=== PATIENT | female | born 1960 | race Caucasian/White ===

== ENCOUNTER 2021-08-26 08:00 | Inpatient (IN) | payer BC ==
[~2021-08-26 08:00] MED LIST: Lactated Ringers 1,000 ML IV SCH; Lidocaine 1%/Sod Bicarbonate in NS 8.4% 1 ML Syringe IDERM PRN; Sodium Chloride 0.9% 10 ML Syringe FLUSH PRN
[2021-09-09] MEDS ORDERED: Lidocaine 1%/Sod Bicarbonate in NS 8.4% 1 ML Syringe IDERM PRN (00:01)
[2021-09-09] MEDS ORDERED: Sodium Chloride 0.9% 10 ML Syringe FLUSH SCH (00:01)
[2021-09-09] MEDS ORDERED: Lactated Ringers 1,000 ML IV SCH ×3 (00:01→21:55)
[2021-09-09] MEDS ORDERED: Propofol 200 MG/20 ML SDV ONE (07:17)
[2021-09-09] MEDS ORDERED: fentaNYL 250 MCG/5 ML SDV ONE (07:17)
[2021-09-09] MEDS ORDERED: Lidocaine 1% 4 ML ONE (07:17)
[2021-09-09] MEDS ORDERED: Rocuronium 50 MG/5 ML Vial ONE ×4 (07:17→16:39)
[2021-09-09] MEDS ORDERED: HYDROmorphone 0.5 MG/0.5 ML Syringe ONE ×3 (07:17→18:08)
[2021-09-09] MEDS ORDERED: Midazolam 1 MG/ML 2 ML SDV ONE (07:17)
[2021-09-09] MEDS ORDERED: Lactated Ringers 1,000 ML ONE ×6 (07:17→16:10)
[2021-09-09] MEDS ORDERED: Ondansetron 4 MG/2 ML SDV ONE (07:17)
[2021-09-09] MEDS ORDERED: Dexmedetomidine 200 MCG/2 ML SDV ONE (07:28)
--- NOTE | 2021-09-09 07:47 | PCM.PREANE ---
Preanesthetic Assessment - Anesthesia/Transfusion/Family Hx Anesthesia History: Unknown (s/p covid beginning of august, very minor symptoms with only loss of smell. denies any medical issues) Family History of Anesthesia Reaction: No Transfusion History: Prior Transfusion Without Reaction - Review of Systems General: No Symptoms, Other (s/p covid beginning august, denies any issues currently) Pulmonary: No Symptoms Cardiovascular: No Symptoms Gastrointestinal: Other (crohns, no major issues for a long time, denies reflux or GERD) Neurological: Other (back pain with tumor) Other: Reports: None - Physical Assessment NPO Status Date: 09/08/21 NPO Status Time: 22:30 Vital Signs: Last Vital Signs Temp 36.7 C 09/09/21 07:30 Pulse 77 09/09/21 07:30 Resp 16 09/09/21 07:30 BP 132/92 H 09/09/21 07:30 Pulse Ox 98 09/09/21 07:30 Weight: 80 kg ASA Class: 2 Mental Status: Alert & Oriented x3 Airway Class: Mallampati = 1 Dentition: Reports: Normal Dentition Thyro-Mental Finger Breadths: 3 Mouth Opening Finger Breadths: 3 ROM/Head Extension: Full Lungs: Clear to Auscultation, Normal Respiratory Effort Cardiovascular: Regular Rate, Regular Rhythm - Allergies Allergies/Adverse Reactions: Allergies Allergy/AdvReac Type Severity Reaction Status Date / Time codeine AdvReac Irritabilit Verified 09/09/21 07:40 y - Blood Blood Available: Yes Product(s) Available: PRBC - Acknowledgements Anesthesia Type Planned: General Anesthesia Pt an Appropriate Candidate for the Planned Anesthesia: Yes Alternatives and Risks of Anesthesia Discussed w Pt/Guardian: Yes Pt/Guardian Understands and Agrees with Anesthesia Plan: Yes PreAnesthesia Questionnaire Other Gastrointestinal History: crohns, gastrointestinal stromal tumor - Past Surgical History Other HEENT Surgeries/Procedures: lasik Other Musculoskeletal Surgeries/Procedures:: repair left ankle fracture - HOME MEDS Home Medications: Home Meds . [No Known Home Meds] 09/09/21 [History] - CURRENT (IN HOUSE) MEDS Current Meds: Current Medications Lactated Ringer's (Ringers, Lactated) 1,000 mls @ 125 mls/hr IV ASDIRECTED [place] Stop: 09/09/21 23:00 Lidocaine/Sodium Bicarbonate (Lidocaine 1%/Sod Bicarbonate In Ns 8.4% 1 Ml Syringe) 0.25 ml IDERM ONETIME PRN PRN Reason: Prior to IV Start Stop: 09/09/21 18:00 Sodium Chloride (Sodium Chloride 0.9% 10 Ml Syringe) 10 ml FLUSH 0900,2100 [facility] Stop: 09/09/21 18:00 Discontinued Medications Dexmedetomidine HCl (Dexmedetomidine 200 Mcg/2 Ml Sdv) Confirm Administered Dose 200 mcg .ROUTE .STK-MED ONE Stop: 09/09/21 07:29 Fentanyl (Fentanyl 250 Mcg/5 Ml Sdv) Confirm Administered Dose 250 mcg .ROUTE .STK-MED ONE Stop: 09/09/21 07:18 Hydromorphone HCl (Hydromorphone 0.5 Mg/0.5 Ml Syringe) Confirm Administered Dose 0.5 mg .ROUTE .STK-MED ONE Stop: 09/09/21 07:18 Lactated Ringer's (Ringers, Lactated) Confirm Administered Dose 1,000 mls @ as directed .ROUTE .STK-MED ONE Stop: 09/09/21 07:18 Lidocaine HCl (Xylocaine-Mpf 1%) Confirm Administered Dose 4 mls @ as directed .ROUTE .STK-MED ONE Stop: 09/09/21 07:18 Lactated Ringer's (Ringers, Lactated) 1,000 mls @ 125 mls/hr IV ASDIRECTED [facility] Stop: 08/26/21 23:00 Lidocaine/Sodium Bicarbonate (Lidocaine 1%/Sod Bicarbonate In Ns 8.4% 1 Ml Syringe) 0.25 ml IDERM ONETIME PRN PRN Reason: Prior to IV Start Stop: 08/26/21 18:00 Midazolam HCl (Midazolam 1 Mg/Ml 2 Ml Sdv) Confirm Administered Dose 2 mg .ROUTE .STK-MED ONE Stop: 09/09/21 07:18 Ondansetron HCl (Ondansetron 4 Mg/2 Ml Sdv) Confirm Administered Dose 4 mg .ROUTE .STK-MED ONE Stop: 09/09/21 07:18 Propofol (Propofol 200 Mg/20 Ml Sdv) Confirm Administered Dose 200 mg .ROUTE .STK-MED ONE Stop: 09/09/21 07:18 Rocuronium [place] (Rocuronium 50 Mg/5 Ml Vial) Confirm Administered Dose 50 mg .ROUTE .STK-MED ONE Stop: 09/09/21 07:18 Sodium Chloride (Sodium Chloride 0.9% 10 Ml Syringe) 10 ml FLUSH ASDIRECTED PRN PRN Reason: Keep Vein Open Stop: 08/26/21 18:00
[2021-09-09] MEDS ORDERED: ceFAZolin 1 GM Vial ONE ×3 (07:58→16:26)
[2021-09-09] MEDS ORDERED: Bupivacaine 0.5% 30 ML SDV ONE (08:18)
[2021-09-09] MEDS ORDERED: ePHEDrine 50 MG/ML SDV ONE (08:49)
[2021-09-09] MEDS ORDERED: Ketamine 500 mg/10 ML MDV ONE (09:25)
[2021-09-09] MEDS ORDERED: Ondansetron 4 MG/2 ML SDV IVPUSH PRN (09:33)
[2021-09-09] MEDS ORDERED: fentaNYL 100 MCG/2 ML SDV IVPUSH PRN (09:33)
[2021-09-09] MEDS ORDERED: HYDROmorphone 0.5 MG/0.5 ML Syringe IVPUSH PRN (09:33)
[2021-09-09] MEDS ORDERED: Dexamethasone 4 MG/ML 5 ML MDV ONE (10:17)
[2021-09-09] MEDS ORDERED: Ketorolac 30 MG/ML SDV ONE (11:25)
[2021-09-09] MEDS ORDERED: Sodium Chloride 0.9% 1,000 ML ONE ×2 (16:10→17:42)
[2021-09-09] MEDS ORDERED: fentaNYL 100 MCG/2 ML SDV ONE (18:08)
--- NOTE | 2021-09-09 19:55 | PCM.POSTAN ---
POST ANESTHESIA ASSESSMENT - MENTAL STATUS Mental Status: Somnolent - VITAL SIGNS Vital Signs: PACU first Vital Signs 119/79 129 HR 20 RR 98% on 4L O2 99.3 F - RESPIRATORY Respiratory Status: Respiratory Rate WNL, Airway Patent, O2 Saturation Stable, Supplemental Oxygen - CARDIOVASCULAR CV Status: Elevated Pulse Rate - GASTROINTESTINAL GI Status: No Symptoms - PAIN Pain Score: 0 - POST OP HYDRATION Hydration Status: Hypovolemic
--- NOTE | 2021-09-09 20:03 | CR ---
Chest: Portable view of the chest was obtained. Comparison: No prior chest imaging is available. Nasogastric tube is seen. Tip lies within the stomach in satisfactory position. Heart size and mediastinum are within normal limits for portable technique. Slight atelectasis is seen within both lung bases. Minimal atelectasis is seen within the left upper lung. Lungs otherwise are clear. Impression: 1. Satisfactory position of nasogastric tube. 2. Scattered areas of atelectasis as noted above. Diagnostic code #2
--- NOTE | 2021-09-09 20:21 | OR ---
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 OPERATION PERFORMED: 1. Laparoscopy, lysis of adhesions totalling 180 minutes 2. Laparoscopic converted to open resection of recurrent gastrointestinal stromal tumor measuring 11 cm 3. Small bowel resection with side to side stapled anastomosis 4. Partial rectosigmoid resection with end to end stapled colorectal anastomosis. ESTIMATED BLOOD LOSS: 1.5 L. Blood Transfusion: 2 Units PRBCs ANESTHESIA: General endotracheal. Local - 0.5% Marcaine without epinephrine. COMPLICATIONS: None. NEED FOR ASSISTANCE: Skilled assistance of nurse practitioner Keila Harvey CNP, was needed in this case. She assisted with patient positioning, holding retractors and camera during the operation, and incision closure at the end of the operation. She was needed for efficiency of the procedure and safety of the patient. INDICATIONS AND CONSENT: Ms. Nesbitt is 61 yo female. 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 The patient underwent Gleevec treatment and was being monitored and was noted to have another recurrent abdominal mass in the pelvis. This was about 8.2 cm in diameter. The patient was recommended to undergo resection and saw me in clinic, and we discussed resection. She agreed to proceed. Risks, benefits, and alternatives were discussed, and she agreed, and informed consent was obtained. DESCRIPTION OF PROCEDURE: The patient was taken to the operating room and placed in supine position. General endotracheal anesthesia was induced. She was padded appropriately, vaca catheter was placed, preop antibiotics - Ancef- were administered. Bilateral arms were tucked.The abdomen was prepped and draped in the usual sterile fashion and a time-out was performed. The procedure was begun laparoscopically. Marcaine 0.5 was injected in the Rojas's point in the left upper quadrant. A stab incision was made, and a Veress needle was placed, and the abdomen was insufflated to 15 mmHg. Then, a 5 mm scope was placed in the left upper quadrant. There were significant adhesions in the abdomen from prior surgery. Another 5 mm trocar was placed in the left mid abdomen. Lysis of adhesions from abdominal wall was carried out with LigaSure Impact, making sure to stay away from bowel. This took about 1 hour to do lysis of adhesions. Enough space was created and another trocar was placed in the left lower quadrant. At this point then, we examined the abdomen. We saw that there was no injury to the Veress needle, and there was no active bleeding. The mass was seen in the pelvis. It was soft but immobile. We began by trying to run the bowel from the cecum, but there were too many adhesions to run the bowel properly. Therefore we began lysis of adhesions between the bowels to be able to clearly define the anatomy. This was carried out both bluntly and sharply using bowel graspers and laparoscopic jerel. Care was taken to avoid bowel injuries. Intrabowel lysis of adhesions took another 2 hrs to perform. The goal was to release the small bowel to enable us to define anatomy and not necessarily to lyse all adhesions. Once adequate enterolysis was performed, we were able to run the bowel from the cecum to the ligament of Trietz. Two loops of small bowel were intimately involved with the mass. these were in the mid ileum and distal jejunum. Rectosigmoid colon was also intimately involved with the mass. With careful dissection, the distal ileum loop was able to be from the mass without any injury to the bowel and without entering the mass. However, attempts to separate the loop of distal jejunum were unsuccessful as this was more tightly adhered to the mass. I was concerned that the mass might be arising from this loop of small bowel. Therefore, a decision was made to resect this loop of bowel en-block with the mass. Therefore, we proceeded with excision of the distal bowel surrounding this mass using Endo-NORA stapler 60 blue load. The left mid abdominal 5 mm trocar was converted to a 12 mm trocar to accommodate the stapler. We transected both the distal and proximal ends of the distal jejunum. Then, the intervening mesentery was also divided with the LigaSure Impact. A total of 10-12 cm piece of small intestine was transected en-block with the mass. Then, we continued to release the tumor from surrounding tissues. The mass was adherent to the posterior pelvis and attempts to lyse adhesions resulted in troublesome bleeding. Attempts to release the rectosigmoid colon from the mass also failed due to tight adhesions to this area. the rest of the sigmoid colon was totally uninvolved. Therefore, decision was made to convert the procedure to open. A lower midline laparotomy was created, and the abdomen was entered without any injuries, and then, a Bookwalter was placed to be able to retract the abdominal wall, and we began to release the mass from surrounding tissues, meticulously taking care not to injure any known structures such as the ureter and iliac vessels. As expected in reoperative surgery and vascular GIST tumors, bleeding was significant. This GIST tumor was very vascular; therefore, dissection was carried out slowly and meticulously as the tumor from its attachments resulted in bleeding that has to be controlled with a combination of sutures, large or medium clips and electrosurgery. Blood lose was up to 1500 mL and a decision was made to transfuse the patient with 2 units of pRBCs one at a time as her blood pressure was soft. However, the patient's urine output remained stable. The patient did not become hypothermic. We continued meticulously releasing the mass from surrounding tissues, taking care not to injure any vital structures. We noted that the adhesions from the sigmoid colon were very tight, and it was possible that the mass was originating from the rectosigmoid colon. Therefore, decision was made to resect the part of the sigmoid colon involved. About 5 cm proximal to this mass, the sigmoid was resected using a linear stapler using a blue load. Then, the rectosigmoid mesentery was divided using LigaSure Impact, and the mass was released completely from surrounding tissues, and the proximal rectum was resected using a TA stapler 60 mm blue load. Then, once this was resected, the mass was removed. About 10 cm of of colon was resected. Long stitch was placed on the proximal end of jejunal stump and short stitch was placed at the proximal end of the sigmoid colon stump. The specimen was passed off for pathology. The pelvis was irrigated with warm sterile water. Next, we proceeded with reconstruction. The distal jejunal ends were anastomosed in a [id number] fashion using a NORA stapler purple load to create a common enterotomy and a TA stapler to close the common enterotomy. Then, the common enterotomy closure was reinforced with Lembert stitches using 3- 0 silk. Crotch stitch was placed, also using 3-0 silk stitch. The mesenteric defect was closed using 2-0 Vicryl stitches. The anastomosis appeared to be healthy and wide open. Next, we turned our attention to colorectal anastomosis. The distal sigmoid colon was opened, and a 28 mm EEA stapler was brought into the field. The anvil was placed into this distal sigmoid colon and secured with a purse stringed sutures. Then, the patient's position was converted to modified lithotomy to access the rectum. The rectum was prepped with Betadine. Then, the 28 EEA stapler was placed into the rectum and all the way to the staple line in the proximal rectum, and the spike was placed through the anterior staple line in the rectal stump, and an end-to-end colorectal anastomosis was performed between the distal sigmoid and proximal rectum. The tissue donuts were inspected and were intact. Two intact donuts were noted. A leak test was performed using a rigid sigmoidoscope, and there was no leak of air during the leak test. Once this was done, the area was irrigated once again, and counts were done at this point, and all counts were correct. Then, we changed our gowns and re-sterilized ourselves and proceeded with incision closure. The incision was closed in 2 layers. The fascia was closed with 1 PDS stitches in a running fashion. Then, the skin was irrigated with IrriSept and closed with carol ann. Then, all the laparoscopic insertion sites were also closed with carol ann. The 12 mm trocar site, which was used to perform transection of the small bowel, was closed at the fascial level with 0 Vicryl stitch and carol ann at the skin level. This marked the end of the procedure. The patient tolerated the procedure well. She will be extubated and taken to the ICU for observation and postop care. MALACHI /[id number] KAUSHIK
[2021-09-09] MEDS: Lactated Ringers 1,000 ML IV SCH (22:14)
[2021-09-09] MEDS: Ondansetron 4 MG/2 ML SDV IVPUSH PRN (23:06)
[2021-09-09] MEDS: HYDROmorphone 1 MG/ML Syringe IVPUSH PRN (23:13)
[2021-09-10] MEDS: Lactated Ringers 1,000 ML IV SCH (04:39)
[2021-09-10] MEDS: HYDROmorphone 1 MG/ML Syringe IVPUSH PRN ×4 (05:42→20:29)
[2021-09-10] MEDS: Pantoprazole 40 MG Tab.CR PO SCH (06:37)
[2021-09-10] MEDS ORDERED: Lactated Ringers 1,000 ML IV SCH (07:15)
--- NOTE | 2021-09-10 07:45 | PCM.PN ---
- General Info Date of Service: 09/10/21 Functional Status: Reports: Pain Controlled, Urinating - Review of Systems General: Reports: No Symptoms HEENT: Reports: No Symptoms Pulmonary: Reports: No Symptoms Cardiovascular: Reports: No Symptoms Gastrointestinal: Reports: Abdominal Pain (nelli-incisional) Genitourinary: Reports: No Symptoms Musculoskeletal: Reports: No Symptoms Skin: Reports: No Symptoms - Patient Data Vitals - Most Recent: Last Vital Signs Temp 97.2 F 09/10/21 04:00 Pulse 87 09/10/21 04:00 Resp 20 09/10/21 04:00 BP 121/66 09/10/21 04:00 Pulse Ox 97 09/10/21 05:50 Weight - Most Recent: 88.451 kg I&O - Last 24 Hours: Intake & Output 09/09/21 09/10/21 09/10/21 22:59 06:59 14:59 Intake Total 500 1118 Output Total 1400 1025 Balance -900 93 Lab Results Last 24 Hours: Laboratory Results - last 24 hr 09/09/21 09/09/21 09/09/21 Range/Units 07:45 19:33 19:33 WBC 11.87 H (3.98-10.04) K/mm3 RBC 4.06 (3.98-5.22) M/mm3 Hgb 11.9 D (11.2-15.7) gm/dl Hct 37.0 (34.1-44.9) % MCV 91.1 (79.4-94.8) fl MCH 29.3 (25.6-32.2) pg MCHC 32.2 (32.2-35.5) g/dl RDW Std Deviation 48.8 H (36.4-46.3) fL Plt Count 377 H (182-369) K/mm3 MPV 9.1 L (9.4-12.3) fl Neut % (Auto) 82.1 H (34.0-71.1) % Lymph % (Auto) 12.2 L (19.3-51.7) % [place] % (Auto) 5.3 (4.7-12.5) % Eos % (Auto) 0 L (0.7-5.8) Baso % (Auto) 0.1 (0.1-1.2) % Neut # (Auto) 9.75 H (1.56-6.13) K/mm3 Lymph # (Auto) 1.45 (1.18-3.74) K/mm3 [place] # (Auto) 0.63 H (0.24-0.36) K/mm3 Eos # (Auto) 0.00 L (0.04-0.36) K/mm3 Baso # (Auto) 0.01 (0.01-0.08) K/mm3 Sodium 139 (136-145) mEq/L Potassium 4.7 (3.5-5.1) mEq/L Chloride 106 (98-107) mEq/L Carbon Dioxide 21 (21-32) mEq/L Anion Gap 16.7 H (5-15) BUN 7 (7-18) mg/dL Creatinine 1.0 (0.55-1.02) mg/dL Est Cr Clr Drug Dosing 48.25 mL/min Estimated GFR (MDRD) 56 (>60) mL/min BUN/Creatinine Ratio 7.0 L (14-18) Glucose 252 H (70-99) mg/dL Calcium 7.6 L (8.5-10.1) mg/dL Phosphorus (2.6-4.7) mg/dL Magnesium (1.8-2.4) mg/dL Total Bilirubin 0.7 (0.2-1.0) mg/dL AST 67 H (15-37) U/L ALT 59 (14-59) U/L Alkaline Phosphatase 52 (46-116) U/L Total Protein 5.4 L (6.4-8.2) g/dl Albumin 2.4 L (3.4-5.0) g/dl Globulin 3.0 gm/dL Albumin/Globulin Ratio 0.8 L (1-2) Blood Type O POSITIVE Gel Antibody Screen Negative Crossmatch See Detail 09/10/21 09/10/21 Range/Units 06:28 06:28 WBC 8.70 (3.98-10.04) K/mm3 RBC 3.36 L (3.98-5.22) M/mm3 Hgb 9.7 L D (11.2-15.7) gm/dl Hct 30.2 L (34.1-44.9) % MCV 89.9 (79.4-94.8) fl MCH 28.9 (25.6-32.2) pg MCHC 32.1 L (32.2-35.5) g/dl RDW Std Deviation 47.6 H (36.4-46.3) fL Plt Count 284 D (182-369) K/mm3 MPV 9.3 L (9.4-12.3) fl Neut % (Auto) 73.8 H (34.0-71.1) % Lymph % (Auto) 16.0 L (19.3-51.7) % [place] % (Auto) 9.8 (4.7-12.5) % Eos % (Auto) 0 L (0.7-5.8) Baso % (Auto) 0.1 (0.1-1.2) % Neut # (Auto) 6.42 H (1.56-6.13) K/mm3 Lymph # (Auto) 1.39 (1.18-3.74) K/mm3 [place] # (Auto) 0.85 H (0.24-0.36) K/mm3 Eos # (Auto) 0.00 L (0.04-0.36) K/mm3 Baso # (Auto) 0.01 (0.01-0.08) K/mm3 Sodium 139 (136-145) mEq/L Potassium 4.1 (3.5-5.1) mEq/L Chloride 105 (98-107) mEq/L Carbon Dioxide 26 (21-32) mEq/L Anion Gap 12.1 (5-15) BUN 9 (7-18) mg/dL Creatinine 0.7 (0.55-1.02) mg/dL Est Cr Clr Drug Dosing 68.93 mL/min Estimated GFR (MDRD) > 60 (>60) mL/min BUN/Creatinine Ratio 12.9 L (14-18) Glucose 319 H (70-99) mg/dL Calcium 7.4 L (8.5-10.1) mg/dL Phosphorus 3.1 (2.6-4.7) mg/dL Magnesium 1.7 L (1.8-2.4) mg/dL Total Bilirubin (0.2-1.0) mg/dL AST (15-37) U/L ALT (14-59) U/L Alkaline Phosphatase (46-116) U/L Total Protein (6.4-8.2) g/dl Albumin (3.4-5.0) g/dl Globulin gm/dL Albumin/Globulin Ratio (1-2) Blood Type Gel Antibody Screen Crossmatch Med Orders - Current: Current Medications Enoxaparin Sodium (Enoxaparin 40 Mg/0.4 Ml Syringe) 40 mg SUBCUT DAILY [facility] Hydromorphone HCl (Hydromorphone 1 Mg/Ml Syringe) 1 mg IVPUSH Q3H PRN PRN Reason: Pain (severe 7-10) Last Admin: 09/10/21 05:42 Dose: 1 mg Documented by: Lactated Ringer's (Ringers, Lactated) 1,000 mls @ 100 mls/hr IV ASDIRECTED [facility] Magnesium Sulfate 2 gm/ Premix 50 mls @ 25 mls/hr IV ONETIME ONE Stop: 09/10/21 09:40 Magnesium Sulfate/Dextrose 1 (gm/ Premix) 100 mls @ 100 mls/hr IV ONETIME ONE Stop: 09/10/21 08:41 Ondansetron HCl (Ondansetron 4 Mg/2 Ml Sdv) 4 mg IVPUSH Q6H PRN PRN Reason: Nausea/Vomiting Last Admin: 09/09/21 23:06 Dose: 4 mg Documented by: Pantoprazole Sodium (Pantoprazole 40 Mg Tab.Cr) 40 mg PO DAILY@0600 [facility] Last Admin: 09/10/21 06:37 Dose: Not Given Documented by: Discontinued Medications Bupivacaine HCl (Bupivacaine 0.5% 30 Ml Sdv) Confirm Administered Dose 30 ml .ROUTE .STK-MED ONE Stop: 09/09/21 08:19 Last Admin: 09/09/21 18:50 Dose: 22 ml Documented by: Cefazolin Sodium (Cefazolin 1 Gm Vial) Confirm Administered Dose 3 gm .ROUTE .STK-MED ONE Stop: 09/09/21 07:59 Cefazolin Sodium (Cefazolin 1 Gm Vial) Confirm Administered Dose 1 gm .ROUTE .STK-MED ONE Stop: 09/09/21 12:24 Cefazolin Sodium (Cefazolin 1 Gm Vial) Confirm Administered Dose 2 gm .ROUTE .ST K-MED ONE Stop: 09/09/21 16:27 Dexamethasone (Dexamethasone 4 Mg/Ml 5 Ml Mdv) Confirm Administered Dose 20 mg .ROUTE .STK-MED ONE Stop: 09/09/21 10:18 Dexmedetomidine HCl (Dexmedetomidine 200 Mcg/2 Ml Sdv) Confirm Administered Dose 200 mcg .ROUTE .STK-MED ONE Stop: 09/09/21 07:29 Ephedrine Sulfate (Ephedrine 50 Mg/Ml Sdv) Confirm Administered Dose 50 mg .ROUTE .STK-MED ONE Stop: 09/09/21 08:50 Fentanyl (Fentanyl 250 Mcg/5 Ml Sdv) Confirm Administered Dose 250 mcg .ROUTE .STK-MED ONE Stop: 09/09/21 07:18 Fentanyl (Fentanyl 100 Mcg/2 Ml Sdv) 50 mcg IVPUSH Q5M PRN PRN Reason: Pain Stop: 09/09/21 12:00 Fentanyl (Fentanyl 100 Mcg/2 Ml Sdv) Confirm Administered Dose 100 mcg .ROUTE .STK-MED ONE Stop: 09/09/21 18:09 Glycopyrrolate (Glycopyrrolate 0.2 Mg/Ml 2 Ml Syringe) Confirm Administered Dose 0.8 mg .ROUTE .STK-MED ONE Stop: 09/09/21 09:15 Hydromorphone HCl (Hydromorphone 0.5 Mg/0.5 Ml Syringe) Confirm Administered Dose 0.5 mg .ROUTE .STK-MED ONE Stop: 09/09/21 07:18 Hydromorphone HCl (Hydromorphone 0.5 Mg/0.5 Ml Syringe) 0.5 mg IVPUSH Q10M PRN PRN Reason: Pain (severe 7-10) Stop: 09/09/21 12:00 Hydromorphone HCl (Hydromorphone 0.5 Mg/0.5 Ml Syringe) Confirm Administered D ose 0.5 mg .ROUTE .STK-MED ONE Stop: 09/09/21 13:33 Hydromorphone HCl (Hydromorphone 0.5 Mg/0.5 Ml Syringe) Confirm Administered Dose 0.5 mg .ROUTE .STK-MED ONE Stop: 09/09/21 18:09 Lactated Ringer's (Ringers, Lactated) Confirm Administered Dose 1,000 mls @ as directed .ROUTE .STK-MED ONE Stop: 09/09/21 07:18 Lidocaine HCl (Xylocaine-Mpf 1%) Confirm Administered Dose 4 mls @ as directed .ROUTE .STK-MED ONE Stop: 09/09/21 07:18 Lactated Ringer's (Ringers, Lactated) Confirm Administered Dose 1,000 mls @ as directed .ROUTE .[facility] ONE Stop: 09/09/21 16:11 Lactated Ringer's (Ringers, Lactated) Confirm Administered Dose 1,000 mls @ as directed .ROUTE .[facility] ONE Stop: 09/09/21 16:11 Lactated Ringer's (Ringers, Lactated) Confirm Administered Dose 1,000 mls @ as directed .ROUTE .[facility] ONE Stop: 09/09/21 16:11 Lactated Ringer's (Ringers, Lactated) Confirm Administered Dose 1,000 mls @ as directed .ROUTE .[facility] ONE Stop: 09/09/21 16:11 Lactated Ringer's (Ringers, Lactated) Confirm Administered Dose 1,000 mls @ as directed .ROUTE .[facility] ONE Stop: 09/09/21 16:11 Sodium Chloride (Normal Saline) Confirm Administered Dose 1,000 mls @ as directed .ROUTE .[facility] ONE Stop: 09/09/21 16:11 Sodium Chloride (Normal Saline) Confirm Administered Dose 1,000 mls @ as directed .ROUTE .[facility] ONE Stop: 09/09/21 17:43 Lactated Ringer's (Ringers, Lactated) 1,000 mls @ 125 mls/hr IV ASDIRECTED [place] Lactated Ringer's (Ringers, Lactated) 1,000 mls @ 150 mls/hr IV ASDIRECTED [place] Lactated Ringer's (Ringers, Lactated) 1,000 mls @ 150 mls/hr IV ASDIRECTED [place] Last Infusion: 09/10/21 07:00 Dose: 100 mls/hr Documented by: Lactated Ringer's (Ringers, Lactated) 1,000 mls @ 125 mls/hr IV ASDIRECTED [place] Stop: 08/26/21 23:00 Lactated Ringer's (Ringers, Lactated) 1,000 mls @ 125 mls/hr IV ASDIRECTED [place] Stop: 09/09/21 23:00 Last Admin: 09/09/21 07:55 Dose: 125 mls/hr Documented by: Ketamine HCl (Ketamine 500 Mg/10 Ml Mdv) Confirm Administered Dose 500 mg .ROUTE .ST-MED ONE Stop: 09/09/21 09:26 Ketorolac Tromethamine (Ketorolac 30 Mg/Ml Sdv) Confirm Administered Dose 30 mg .ROUTE .[facility] ONE Stop: 09/09/21 11:26 Lidocaine/Sodium Bicarbonate (Lidocaine 1%/Sod Bicarbonate In Ns 8.4% 1 Ml Syringe) 0.25 ml IDERM ONETIME PRN PRN Reason: Prior to IV Start Stop: 08/26/21 18:00 Lidocaine/Sodium Bicarbonate (Lidocaine 1%/Sod Bicarbonate In Ns 8.4% 1 Ml Syringe) 0.25 ml IDERM ONETIME PRN PRN Reason: Prior to IV Start Stop: 09/09/21 18:00 Midazolam HCl (Midazolam 1 Mg/Ml 2 Ml Sdv) Confirm Administered Dose 2 mg .ROUTE .[facility] ONE Stop: 09/09/21 07:18 Miscellaneous Medication (Phenylephrine Hcl In 0.9% Nacl 1 Mg/10 Ml Syringe) Confirm Administered Dose 1 mg .ROUTE .[facility] ONE Stop: 09/09/21 08:52 Miscellaneous Medication (Phenylephrine Hcl In 0.9% Nacl 1 Mg/10 Ml Syringe) Confirm Administered Dose 1 mg .ROUTE .[facility] ONE Stop: 09/09/21 14:03 Miscellaneous Medication (Phenylephrine Hcl In 0.9% Nacl 1 Mg/10 Ml Syringe) Confirm Administered Dose 1 mg .ROUTE .[facility] ONE Stop: 09/09/21 15:11 Miscellaneous Medication (Phenylephrine Hcl In 0.9% Nacl 1 Mg/10 Ml Syringe) Confirm Administered Dose 1 mg .ROUTE .[facility] ONE Stop: 09/09/21 16:11 Miscellaneous Medication (Phenylephrine Hcl In 0.9% Nacl 1 Mg/10 Ml Syringe) Confirm Administered Dose 2 mg .ROUTE .ST-MED ONE Stop: 09/09/21 16:39 Miscellaneous Medication (Phenylephrine Hcl In 0.9% Nacl 1 Mg/10 Ml Syringe) Confirm Administered Dose 2 mg .ROUTE .ST-MED ONE Stop: 09/09/21 17:36 Neostigmine Methylsulfate (Neostigmine Methylsulfate 5 Mg/5 Ml Syringe) Confirm Administered Dose 5 mg .ROUTE .[facility] ONE Stop: 09/09/21 10:55 Ondansetron HCl (Ondansetron 4 Mg/2 Ml Sdv) Confirm Administered Dose 4 mg .ROUTE .STK-MED ONE Stop: 09/09/21 07:18 Ondansetron HCl (Ondansetron 4 Mg/2 Ml Sdv) 4 mg IVPUSH ONETIME PRN PRN Reason: Nausea/Vomiting Stop: 09/09/21 12:00 Propofol (Propofol 200 Mg/20 Ml Sdv) Confirm Administered Dose 200 mg .ROUTE .STK-MED ONE Stop: 09/09/21 07:18 Rocuronium [place] (Rocuronium 50 Mg/5 Ml Vial) Confirm Administered Dose 50 mg .ROUTE .STK-MED ONE Stop: 09/09/21 07:18 Rocuronium [place] (Rocuronium 50 Mg/5 Ml Vial) Confirm Administered Dose 50 mg .ROUTE .STK-MED ONE Stop: 09/09/21 10:20 Rocuronium [place] (Rocuronium 50 Mg/5 Ml Vial) Confirm Administered Dose 50 mg .ROUTE .STK-MED ONE Stop: 09/09/21 13:35 Rocuronium [place] (Rocuronium 50 Mg/5 Ml Vial) Confirm Administered Dose 50 mg .ROUTE .STK-MED ONE Stop: 09/09/21 16:40 Sodium Chloride (Sodium Chloride 0.9% 10 Ml Syringe) 10 ml FLUSH ASDIRECTED PRN PRN Reason: Keep Vein Open Stop: 08/26/21 18:00 Sodium Chloride (Sodium Chloride 0.9% 10 Ml Syringe) 10 ml FLUSH 0900,2100 [place] Stop: 09/09/21 18:00 - Exam Quality Assessment: Supplemental Oxygen General: Alert, Oriented Lungs: Normal Respiratory Effort Cardiovascular: Regular Rate, Regular Rhythm GI/Abdominal Exam: Soft, No Distention, No Abnormal Bruit, No Mass, Tender (appropriately) - Patient Data Lab Results Last 24 hrs: Laboratory Results - last 24 hr 09/09/21 09/09/21 09/09/21 Range/Units 07:45 19:33 19:33 WBC 11.87 H (3.98-10.04) K/mm3 RBC 4.06 (3.98-5.22) M/mm3 Hgb 11.9 D (11.2-15.7) gm/dl Hct 37.0 (34.1-44.9) % MCV 91.1 (79.4-94.8) fl MCH 29.3 (25.6-32.2) pg MCHC 32.2 (32.2-35.5) g/dl RDW Std Deviation 48.8 H (36.4-46.3) fL Plt Count 377 H (182-369) K/mm3 MPV 9.1 L (9.4-12.3) fl Neut % (Auto) 82.1 H (34.0-71.1) % Lymph % (Auto) 12.2 L (19.3-51.7) % [place] % (Auto) 5.3 (4.7-12.5) % Eos % (Auto) 0 L (0.7-5.8) Baso % (Auto) 0.1 (0.1-1.2) % Neut # (Auto) 9.75 H (1.56-6.13) K/mm3 Lymph # (Auto) 1.45 (1.18-3.74) K/mm3 [place] # (Auto) 0.63 H (0.24-0.36) K/mm3 Eos # (Auto) 0.00 L (0.04-0.36) K/mm3 Baso # (Auto) 0.01 (0.01-0.08) K/mm3 Sodium 139 (136-145) mEq/L Potassium 4.7 (3.5-5.1) mEq/L Chloride 106 (98-107) mEq/L Carbon Dioxide 21 (21-32) mEq/L Anion Gap 16.7 H (5-15) BUN 7 (7-18) mg/dL Creatinine 1.0 (0.55-1.02) mg/dL Est Cr Clr Drug Dosing 48.25 mL/min Estimated GFR (MDRD) 56 (>60) mL/min BUN/Creatinine Ratio 7.0 L (14-18) Glucose 252 H (70-99) mg/dL Calcium 7.6 L (8.5-10.1) mg/dL Phosphorus (2.6-4.7) mg/dL Magnesium (1.8-2.4) mg/dL Total Bilirubin 0.7 (0.2-1.0) mg/dL AST 67 H (15-37) U/L ALT 59 (14-59) U/L Alkaline Phosphatase 52 (46-116) U/L Total Protein 5.4 L (6.4-8.2) g/dl Albumin 2.4 L (3.4-5.0) g/dl Globulin 3.0 gm/dL Albumin/Globulin Ratio 0.8 L (1-2) Blood Type O POSITIVE Gel Antibody Screen Negative Crossmatch See Detail 09/10/21 09/10/21 Range/Units 06:28 06:28 WBC 8.70 (3.98-10.04) K/mm3 RBC 3.36 L (3.98-5.22) M/mm3 Hgb 9.7 L D (11.2-15.7) gm/dl Hct 30.2 L (34.1-44.9) % MCV 89.9 (79.4-94.8) fl MCH 28.9 (25.6-32.2) pg MCHC 32.1 L (32.2-35.5) g/dl RDW Std Deviation 47.6 H (36.4-46.3) fL Plt Count 284 D (182-369) K/mm3 MPV 9.3 L (9.4-12.3) fl Neut % (Auto) 73.8 H (34.0-71.1) % Lymph % (Auto) 16.0 L (19.3-51.7) % [place] % (Auto) 9.8 (4.7-12.5) % Eos % (Auto) 0 L (0.7-5.8) Baso % (Auto) 0.1 (0.1-1.2) % Neut # (Auto) 6.42 H (1.56-6.13) K/mm3 Lymph # (Auto) 1.39 (1.18-3.74) K/mm3 [place] # (Auto) 0.85 H (0.24-0.36) K/mm3 Eos # (Auto) 0.00 L (0.04-0.36) K/mm3 Baso # (Auto) 0.01 (0.01-0.08) K/mm3 Sodium 139 (136-145) mEq/L Potassium 4.1 (3.5-5.1) mEq/L Chloride 105 (98-107) mEq/L Carbon Dioxide 26 (21-32) mEq/L Anion Gap 12.1 (5-15) BUN 9 (7-18) mg/dL Creatinine 0.7 (0.55-1.02) mg/dL Est Cr Clr Drug Dosing 68.93 mL/min Estimated GFR (MDRD) > 60 (>60) mL/min BUN/Creatinine Ratio 12.9 L (14-18) Glucose 319 H (70-99) mg/dL Calcium 7.4 L (8.5-10.1) mg/dL Phosphorus 3.1 (2.6-4.7) mg/dL Magnesium 1.7 L (1.8-2.4) mg/dL Total Bilirubin (0.2-1.0) mg/dL AST (15-37) U/L ALT (14-59) U/L Alkaline Phosphatase (46-116) U/L Total Protein (6.4-8.2) g/dl Albumin (3.4-5.0) g/dl Globulin gm/dL Albumin/Globulin Ratio (1-2) Blood Type Gel Antibody Screen Crossmatch Result Diagrams: 09/10/21 06:28 09/10/21 06:28 Sepsis Event Note - Evaluation Sepsis Screening Result: No Definite Risk - Focused Exam Vital Signs: Vital Signs Temp Pulse Resp BP Pulse Ox Pulse Ox 09/10/21 05:50 97 09/10/21 04:00 97.2 F 87 20 121/66 97 09/10/21 00:00 90 20 132/75 97 09/09/21 20:45 98.7 F 114 H 20 109/49 L 98 09/09/21 20:15 98.3 F 118 H 12 109/59 L 96 09/09/21 20:00 98.7 F 122 H 19 121/67 96 09/09/21 19:45 98.8 F 127 H 19 122/71 98 - Problem List Review Problem List Initiated/Reviewed/Updated: No - My Orders Last 24 Hours: My Active Orders 09/09/21 Dinner Nothing Per Oral Diet [DIET] 09/09/21 19:10 Cardiac Monitoring [RC] . DIRECTED Oxygen Therapy [RC] PRN RT Incentive Spirometry [RC] Q1HWA Up With Assistance [RC] ASDIRECTED Vital Signs [RC] PER UNIT ROUTINE HYDROmorphone [Dilaudid] 1 mg IVPUSH Q3H PRN Ondansetron [Zofran] 4 mg IVPUSH Q6H PRN DVT/VTE Prophylaxis Reflex [OM.PC] Routine Resuscitation Status Routine 09/09/21 19:12 Intake and Output [RC] Q4HR Pulse Oximetry [RC] CONTINUOUS 09/09/21 19:15 Antiembolic Devices [RC] .Routine VTE/DVT Education [RC] PER UNIT ROUTINE 09/09/21 20:55 Patient Status [ADT] Routine 09/10/21 06:00 Pantoprazole [ProTONIX] 40 mg PO DAILY@0600 09/10/21 07:15 Lactated Ringers [Ringers, Lactated] 1,000 ml IV ASDIRECTED 09/10/21 07:19 Urinary Catheter Removal [RC] PER UNIT ROUTINE 09/10/21 07:41 Magnesium Sulfate/Water [Magnesium Sulfate in Water 2 GM/50 ML] 2 gm Premix Bag 1 bag IV ONETIME 09/10/21 07:42 Magnesium Sulfate/D5W [Magnesium Sulfate in D5W 1 GM/100 ML] 1 gm Premix Bag 1 bag IV ONETIME 09/10/21 09:00 Enoxaparin [Lovenox] 40 mg SUBCUT DAILY 09/10/21 Lunch NPO Now [Nothing per Oral Now Diet] [DIET] 09/11/21 05:11 BASIC METABOLIC PANEL,BMP [CHEM] AM CBC WITH AUTO DIFF [HEME] AM MAGNESIUM [CHEM] AM PHOSPHORUS [CHEM] AM 09/12/21 05:11 BASIC METABOLIC PANEL,BMP [CHEM] AM CBC WITH AUTO DIFF [HEME] AM MAGNESIUM [CHEM] AM PHOSPHORUS [CHEM] AM 09/13/21 05:11 BASIC METABOLIC PANEL,BMP [CHEM] AM CBC WITH AUTO DIFF [HEME] AM MAGNESIUM [CHEM] AM PHOSPHORUS [CHEM] AM 09/14/21 05:11 BASIC METABOLIC PANEL,BMP [CHEM] AM CBC WITH AUTO DIFF [HEME] AM MAGNESIUM [CHEM] AM PHOSPHORUS [CHEM] AM - Assessment Assessment:: 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 Progressing well - Plan Plan:: - DC vaca - dc NGT - Keep NPO with Ice chips for comfort - IVF to 100 cc/hr LR - replete mag - OOB to chair and to ambulate - IS Q1hr - wean oxygen as tolerated.
[2021-09-10] MEDS ORDERED: Magnesium Sulfate/Water 2 GM in Premix Bag 1 BAG IV ONE (08:00)
--- NOTE | 2021-09-10 08:08 | PCM48HPAN ---
Post Anesthesia Note - EVALUATION WITHIN 48HRS OF ANESTHETIC Vital Signs in Normal Range: Yes Patient Participated in Evaluation: Yes Respiratory Function Stable: Yes Airway Patent: Yes Cardiovascular Function Stable: Yes Hydration Status Stable: Yes Pain Control Satisfactory: Yes (complains of sore throat- waiting for ice chips) Nausea and Vomiting Control Satisfactory: Yes Mental Status Recovered: Yes Vital Signs: Last Vital Signs Temp 97.2 F 09/10/21 04:00 Pulse 87 09/10/21 04:00 Resp 20 09/10/21 04:00 BP 121/66 09/10/21 04:00 Pulse Ox 97 09/10/21 05:50
[2021-09-10] MEDS: Enoxaparin 40 MG/0.4 ML Syringe SUBCUT SCH (09:06)
[2021-09-10] MEDS: Ondansetron 4 MG/2 ML SDV IVPUSH PRN ×2 (10:13→16:29)
--- NOTE | 2021-09-10 17:48 | PCM.SN.2 ---
- Free Text/Narrative Note: I saw the patient this evening. She feels Ok, still tired. Had nausea today especially when up and walking. She did dry heave at one time but not much came up. Pain is fairly well controlled. Burping frequently. Voiding frequently. I think she might be developing an ileus. Plan - Decrease IVF to 75cc/hr - Continue ice chips for comfort - I encouraged her to ambulate and use IS - We will continue to monitor her
[2021-09-11] MEDS: HYDROmorphone 1 MG/ML Syringe IVPUSH PRN ×4 (02:34→23:32)
[2021-09-11] MEDS: Pantoprazole 40 MG Tab.CR PO SCH (06:39)
[2021-09-11] MEDS: D5 1/2 NS w/ 20 mEq/L KCl 1,000 ML IV SCH ×2 (07:44→22:14)
--- NOTE | 2021-09-11 07:44 | PCM.PN ---
- General Info Date of Service: 09/11/21 Admission Dx/Problem (Free Text): Bowel resection Subjective Update: No major changes but the patient feels a bit stronger today so she may try to walk a bit more today Functional Status: Reports: Pain Controlled, Urinating - Review of Systems General: Reports: No Symptoms HEENT: Reports: No Symptoms Pulmonary: Reports: No Symptoms Cardiovascular: Reports: No Symptoms Gastrointestinal: Reports: No Symptoms Genitourinary: Reports: No Symptoms Musculoskeletal: Reports: No Symptoms Skin: Reports: No Symptoms Neurological: Reports: No Symptoms - Patient Data Vitals - Most Recent: Last Vital Signs Temp 98.3 F 09/11/21 04:00 Pulse 70 09/11/21 04:00 Resp 20 09/11/21 04:00 BP 106/61 09/11/21 04:00 Pulse Ox 99 09/11/21 04:00 Weight - Most Recent: 83.189 kg I&O - Last 24 Hours: Intake & Output 09/10/21 09/11/21 09/11/21 22:59 06:59 14:59 Intake Total 1334 500 Output Total 600 Balance 1334 -100 Lab Results Last 24 Hours: Laboratory Results - last 24 hr 09/11/21 09/11/21 Range/Units 06:00 06:00 WBC 7.04 (3.98-10.04) K/mm3 RBC 2.87 L (3.98-5.22) M/mm3 Hgb 8.3 L (11.2-15.7) gm/dl Hct 26.9 L (34.1-44.9) % MCV 93.7 D (79.4-94.8) fl MCH 28.9 (25.6-32.2) pg MCHC 30.9 L (32.2-35.5) g/dl RDW Std Deviation 49.1 H (36.4-46.3) fL Plt Count 232 (182-369) K/mm3 MPV 9.4 (9.4-12.3) fl Neut % (Auto) 66.5 (34.0-71.1) % Lymph % (Auto) 23.3 (19.3-51.7) % [place] % (Auto) 8.8 (4.7-12.5) % Eos % (Auto) 0.9 (0.7-5.8) Baso % (Auto) 0.1 (0.1-1.2) % Neut # (Auto) 4.68 (1.56-6.13) K/mm3 Lymph # (Auto) 1.64 (1.18-3.74) K/mm3 [place] # (Auto) 0.62 H (0.24-0.36) K/mm3 Eos # (Auto) 0.06 (0.04-0.36) K/mm3 Baso # (Auto) 0.01 (0.01-0.08) K/mm3 Sodium 144 (136-145) mEq/L Potassium 3.5 (3.5-5.1) mEq/L Chloride 107 (98-107) mEq/L Carbon Dioxide 33 H (21-32) mEq/L Anion Gap 7.5 (5-15) BUN 6 L (7-18) mg/dL Creatinine 0.7 (0.55-1.02) mg/dL Est Cr Clr Drug Dosing 68.93 mL/min Estimated GFR (MDRD) > 60 (>60) mL/min BUN/Creatinine Ratio 8.6 L (14-18) Glucose 148 H (70-99) mg/dL Calcium 8.1 L (8.5-10.1) mg/dL Phosphorus 2.3 L (2.6-4.7) mg/dL Magnesium 2.4 (1.8-2.4) mg/dL Med Orders - Current: Current Medications Enoxaparin Sodium (Enoxaparin 40 Mg/0.4 Ml Syringe) 40 mg SUBCUT DAILY [facility] Last Admin: 09/10/21 09:06 Dose: 40 mg Documented by: Hydromorphone HCl (Hydromorphone 1 Mg/Ml Syringe) 1 mg IVPUSH Q3H PRN PRN Reason: Pain (severe 7-10) Last Admin: 09/11/21 06:41 Dose: 1 mg Documented by: Potassium Chloride/Dextrose/Sod Cl (D5 1/2 Ns W/ 20 Meq/L Kcl) 1,000 mls @ 75 mls/hr IV ASDIRECTED [place] Potassium Phosphate 30 mmole/ (Sodium Chloride) 510 mls @ 102 mls/hr IV ASDIRECTED RICO Stop: 09/11/21 12:59 Ondansetron HCl (Ondansetron 4 Mg/2 Ml Sdv) 4 mg IVPUSH Q6H PRN PRN Reason: Nausea/Vomiting Last Admin: 09/10/21 16:29 Dose: 4 mg Documented by: Pantoprazole Sodium (Pantoprazole 40 Mg Tab.Cr) 40 mg PO DAILY@0600 RICO Last Admin: 09/11/21 06:39 Dose: 40 mg Documented by: Discontinued Medications Bupivacaine HCl (Bupivacaine 0.5% 30 Ml Sdv) Confirm Administered Dose 30 ml .ROUTE .STK-MED ONE Stop: 09/09/21 08:19 Last Admin: 09/09/21 18:50 Dose: 22 ml Documented by: Cefazolin Sodium (Cefazolin 1 Gm Vial) Confirm Administered Dose 3 gm .ROUTE .STK-MED ONE Stop: 09/09/21 07:59 Cefazolin Sodium (Cefazolin 1 Gm Vial) Confirm Administered Dose 1 gm .ROUTE .S TK-MED ONE Stop: 09/09/21 12:24 Cefazolin Sodium (Cefazolin 1 Gm Vial) Confirm Administered Dose 2 gm .ROUTE .STK-MED ONE Stop: 09/09/21 16:27 Dexamethasone (Dexamethasone 4 Mg/Ml 5 Ml Mdv) Confirm Administered Dose 20 mg .ROUTE .STK-MED ONE Stop: 09/09/21 10:18 Dexmedetomidine HCl (Dexmedetomidine 200 Mcg/2 Ml Sdv) Confirm Administered Dose 200 mcg .ROUTE .STK-MED ONE Stop: 09/09/21 07:29 Ephedrine Sulfate (Ephedrine 50 Mg/Ml Sdv) Confirm Administered Dose 50 mg .ROUTE .STK-MED ONE Stop: 09/09/21 08:50 Fentanyl (Fentanyl 250 Mcg/5 Ml Sdv) Confirm Administered Dose 250 mcg .ROUTE .STK-MED ONE Stop: 09/09/21 07:18 Fentanyl (Fentanyl 100 Mcg/2 Ml Sdv) 50 mcg IVPUSH Q5M PRN PRN Reason: Pain Stop: 09/09/21 12:00 Fentanyl (Fentanyl 100 Mcg/2 Ml Sdv) Confirm Administered Dose 100 mcg .ROUTE .STK-MED ONE Stop: 09/09/21 18:09 Glycopyrrolate (Glycopyrrolate 0.2 Mg/Ml 2 Ml Syringe) Confirm Administered Dose 0.8 mg .ROUTE .STK-MED ONE Stop: 09/09/21 09:15 Hydromorphone HCl (Hydromorphone 0.5 Mg/0.5 Ml Syringe) Confirm Administered Dose 0.5 mg .ROUTE .STK-MED ONE Stop: 09/09/21 07:18 Hydromorphone HCl (Hydromorphone 0.5 Mg/0.5 Ml Syringe) 0.5 mg IVPUSH Q10M PRN PRN Reason: Pain (severe 7-10) Stop: 09/09/21 12:00 Hydromorphone HCl (Hydromorphone 0.5 Mg/0.5 Ml Syringe) Confirm Administered Dose 0.5 mg .ROUTE .STK-MED ONE Stop: 09/09/21 13:33 Hydromorphone HCl (Hydromorphone 0.5 Mg/0.5 Ml Syringe) Confirm Administered Dose 0.5 mg .ROUTE .STK-MED ONE Stop: 09/09/21 18:09 Lactated Ringer's (Ringers, Lactated) Confirm Administered Dose 1,000 mls @ as directed .ROUTE .STK-MED ONE Stop: 09/09/21 07:18 Lidocaine HCl (Xylocaine-Mpf 1%) Confirm Administered Dose 4 mls @ as directed .ROUTE .STK-MED ONE Stop: 09/09/21 07:18 Lactated Ringer's (Ringers, Lactated) Confirm Administered Dose 1,000 mls @ as directed .ROUTE .STK-MED ONE Stop: 09/09/21 16:11 Lactated Ringer's (Ringers, Lactated) Confirm Administered Dose 1,000 mls @ as directed .ROUTE .STK-MED ONE Stop: 09/09/21 16:11 Lactated Ringer's (Ringers, Lactated) Confirm Administered Dose 1,000 mls @ as directed .ROUTE .STK-MED ONE Stop: 09/09/21 16:11 Lactated Ringer's (Ringers, Lactated) Confirm Administered Dose 1,000 mls @ as directed .ROUTE .STK-MED ONE Stop: 09/09/21 16:11 Lactated Ringer's (Ringers, Lactated) Confirm Administered Dose 1,000 mls @ as directed .ROUTE .STK-MED ONE Stop: 09/09/21 16:11 Sodium Chloride (Normal Saline) Confirm Administered Dose 1,000 mls @ as directed .ROUTE .STK-MED ONE Stop: 09/09/21 16:11 Sodium Chloride (Normal Saline) Confirm Administered Dose 1,000 mls @ as direc camron .ROUTE .STK-MED ONE Stop: 09/09/21 17:43 Lactated Ringer's (Ringers, Lactated) 1,000 mls @ 125 mls/hr IV ASDIRECTED RICO Lactated Ringer's (Ringers, Lactated) 1,000 mls @ 150 mls/hr IV ASDIRECTED [place] Lactated Ringer's (Ringers, Lactated) 1,000 mls @ 150 mls/hr IV ASDIRECTED RICO Last Infusion: 09/10/21 07:00 Dose: 100 mls/hr Documented by: Lactated Ringer's (Ringers, Lactated) 1,000 mls @ 100 mls/hr IV ASDIRECTED RIOC Last Admin: 09/10/21 13:51 Dose: 100 mls/hr Documented by: Magnesium Sulfate 2 gm/ Premix 50 mls @ 25 mls/hr IV ONETIME ONE Stop: 09/10/21 09:59 Last Admin: 09/10/21 09:06 Dose: 25 mls/hr Documented by: Magnesium Sulfate/Dextrose 1 (gm/ Premix) 100 mls @ 100 mls/hr IV ONETIME ONE Stop: 09/10/21 10:59 Last Admin: 09/10/21 11:10 Dose: 100 mls/hr Documented by: Lactated Ringer's (Ringers, Lactated) 1,000 mls @ 125 mls/hr IV ASDIRECTED R[place] Stop: 08/26/21 23:00 Lactated Ringer's (Ringers, Lactated) 1,000 mls @ 125 mls/hr IV ASDIRECTED [place] Stop: 09/09/21 23:00 Last Admin: 09/09/21 07:55 Dose: 125 mls/hr Documented by: Ketamine HCl (Ketamine 500 Mg/10 Ml Mdv) Confirm Administered Dose 500 mg .ROUTE .STK-MED ONE Stop: 09/09/21 09:26 Ketorolac Tromethamine (Ketorolac 30 Mg/Ml Sdv) Confirm Administered Dose 30 mg .ROUTE .STK-MED ONE Stop: 09/09/21 11:26 Lidocaine/Sodium Bicarbonate (Lidocaine 1%/Sod Bicarbonate In Ns 8.4% 1 Ml Syringe) 0.25 ml IDERM ONETIME PRN PRN Reason: Prior to IV Start Stop: 08/26/21 18:00 Lidocaine/Sodium Bicarbonate (Lidocaine 1%/Sod Bicarbonate In Ns 8.4% 1 Ml Syringe) 0.25 ml IDERM ONETIME PRN PRN Reason: Prior to IV Start Stop: 09/09/21 18:00 Midazolam HCl (Midazolam 1 Mg/Ml 2 Ml Sdv) Confirm Administered Dose 2 mg .ROUTE .STK-MED ONE Stop: 09/09/21 07:18 Miscellaneous Medication (Phenylephrine Hcl In 0.9% Nacl 1 Mg/10 Ml Syringe) Confirm Administered Dose 1 mg .ROUTE .STK-MED ONE Stop: 09/09/21 08:52 Miscellaneous Medication (Phenylephrine Hcl In 0.9% Nacl 1 Mg/10 Ml Syringe) Confirm Administered Dose 1 mg .ROUTE .STK-MED ONE Stop: 09/09/21 14:03 Miscellaneous Medication (Phenylephrine Hcl In 0.9% Nacl 1 Mg/10 Ml Syringe) Confirm Administered Dose 1 mg .ROUTE .STK-MED ONE Stop: 09/09/21 15:11 Miscellaneous Medication (Phenylephrine Hcl In 0.9% Nacl 1 Mg/10 Ml Syringe) Confirm Administered Dose 1 mg .ROUTE .STK-MED ONE Stop: 09/09/21 16:11 Miscellaneous Medication (Phenylephrine Hcl In 0.9% Nacl 1 Mg/10 Ml Syringe) Confirm Administered Dose 2 mg .ROUTE .STK-MED ONE Stop: 09/09/21 16:39 Miscellaneous Medication (Phenylephrine Hcl In 0.9% Nacl 1 Mg/10 Ml Syringe) Confirm Administered Dose 2 mg .ROUTE .STK-MED ONE Stop: 09/09/21 17:36 Neostigmine Methylsulfate (Neostigmine Methylsulfate 5 Mg/5 Ml Syringe) Confirm Administered Dose 5 mg .ROUTE .STK-MED ONE Stop: 09/09/21 10:55 Ondansetron HCl (Ondansetron 4 Mg/2 Ml Sdv) Confirm Administered Dose 4 mg .ROUTE .STK-MED ONE Stop: 09/09/21 07:18 Ondansetron HCl (Ondansetron 4 Mg/2 Ml Sdv) 4 mg IVPUSH ONETIME PRN PRN Reason: Nausea/Vomiting Stop: 09/09/21 12:00 Propofol (Propofol 200 Mg/20 Ml Sdv) Confirm Administered Dose 200 mg .ROUTE .STK-MED ONE Stop: 09/09/21 07:18 Rocuronium [place] (Rocuronium 50 Mg/5 Ml Vial) Confirm Administered Dose 50 mg .ROUTE .STK-MED ONE Stop: 09/09/21 07:18 Rocuronium [place] (Rocuronium 50 Mg/5 Ml Vial) Confirm Administered Dose 50 mg .ROUTE .STK-MED ONE Stop: 09/09/21 10:20 Rocuronium [place] (Rocuronium 50 Mg/5 Ml Vial) Confirm Administered Dose 50 mg .ROUTE .STK-MED ONE Stop: 09/09/21 13:35 Rocuronium [place] (Rocuronium 50 Mg/5 Ml Vial) Confirm Administered Dose 50 mg .ROUTE .STK-MED ONE Stop: 09/09/21 16:40 Sodium Chloride (Sodium Chloride 0.9% 10 Ml Syringe) 10 ml FLUSH ASDIRECTED PRN PRN Reason: Keep Vein Open Stop: 08/26/21 18:00 Sodium Chloride (Sodium Chloride 0.9% 10 Ml Syringe) 10 ml FLUSH 0900,2100 [place] Stop: 09/09/21 18:00 - Exam Quality Assessment: Supplemental Oxygen General: Alert, Oriented, Cooperative Lungs: Normal Respiratory Effort Cardiovascular: Regular Rate, Regular Rhythm GI/Abdominal Exam: Soft, Tender (appropriately) - Patient Data Lab Results Last 24 hrs: Laboratory Results - last 24 hr 09/11/21 09/11/21 Range/Units 06:00 06:00 WBC 7.04 (3.98-10.04) K/mm3 RBC 2.87 L (3.98-5.22) M/mm3 Hgb 8.3 L (11.2-15.7) gm/dl Hct 26.9 L (34.1-44.9) % MCV 93.7 D (79.4-94.8) fl MCH 28.9 (25.6-32.2) pg MCHC 30.9 L (32.2-35.5) g/dl RDW Std Deviation 49.1 H (36.4-46.3) fL Plt Count 232 (182-369) K/mm3 MPV 9.4 (9.4-12.3) fl Neut % (Auto) 66.5 (34.0-71.1) % Lymph % (Auto) 23.3 (19.3-51.7) % [place] % (Auto) 8.8 (4.7-12.5) % Eos % (Auto) 0.9 (0.7-5.8) Baso % (Auto) 0.1 (0.1-1.2) % Neut # (Auto) 4.68 (1.56-6.13) K/mm3 Lymph # (Auto) 1.64 (1.18-3.74) K/mm3 [place] # (Auto) 0.62 H (0.24-0.36) K/mm3 Eos # (Auto) 0.06 (0.04-0.36) K/mm3 Baso # (Auto) 0.01 (0.01-0.08) K/mm3 Sodium 144 (136-145) mEq/L Potassium 3.5 (3.5-5.1) mEq/L Chloride 107 (98-107) mEq/L Carbon Dioxide 33 H (21-32) mEq/L Anion Gap 7.5 (5-15) BUN 6 L (7-18) mg/dL Creatinine 0.7 (0.55-1.02) mg/dL Est Cr Clr Drug Dosing 68.93 mL/min Estimated GFR (MDRD) > 60 (>60) mL/min BUN/Creatinine Ratio 8.6 L (14-18) Glucose 148 H (70-99) mg/dL Calcium 8.1 L (8.5-10.1) mg/dL Phosphorus 2.3 L (2.6-4.7) mg/dL Magnesium 2.4 (1.8-2.4) mg/dL Result Diagrams: 09/11/21 06:00 09/11/21 06:00 Sepsis Event Note - Evaluation Sepsis Screening Result: No Definite Risk - Focused Exam Vital Signs: Vital Signs Temp Pulse Resp BP Pulse Ox 09/11/21 04:00 98.3 F 70 20 106/61 99 09/11/21 00:00 98.3 F 20 108/63 100 09/10/21 20:00 97.6 F 18 139/67 96 - Problem List Review Problem List Initiated/Reviewed/Updated: No - My Orders Last 24 Hours: My Active Orders 09/10/21 09:00 Enoxaparin [Lovenox] 40 mg SUBCUT DAILY 09/10/21 Lunch NPO Now [Nothing per Oral Now Diet] [DIET] 09/11/21 07:36 Patient Status [ADT] Routine 09/11/21 07:45 D5 1/2 NS w/ 20 mEq/L KCl 1,000 ml IV ASDIRECTED 09/11/21 08:00 Potassium Phosphates 30 mmole Sodium Chloride 0.9% [Normal Saline] 500 ml IV ASDIRECTED 09/12/21 05:11 BASIC METABOLIC PANEL,BMP [CHEM] AM CBC WITH AUTO DIFF [HEME] AM MAGNESIUM [CHEM] AM PHOSPHORUS [CHEM] AM 09/13/21 05:11 BASIC METABOLIC PANEL,BMP [CHEM] AM CBC WITH AUTO DIFF [HEME] AM MAGNESIUM [CHEM] AM PHOSPHORUS [CHEM] AM 09/14/21 05:11 BASIC METABOLIC PANEL,BMP [CHEM] AM CBC WITH AUTO DIFF [HEME] AM MAGNESIUM [CHEM] AM PHOSPHORUS [CHEM] AM - Assessment Assessment:: 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 Progressing well - Plan Plan:: - change IVF to D5 NS with 20 mEq K - Encourage ambulation and IS use - will downgrade her to med/surg status, without telemetry as she has niall stable - replete Phos and Potas - continue to monitor the nausea
[2021-09-11] MEDS ORDERED: Potassium Phosphates 30 MMOLE in Sodium Chloride 0.9% 500 ML IV SCH (08:00)
[2021-09-11] MEDS: Enoxaparin 40 MG/0.4 ML Syringe SUBCUT SCH (09:48)
[2021-09-11] MEDS: Ondansetron 4 MG/2 ML SDV IVPUSH PRN (12:30)
--- NOTE | 2021-09-11 18:02 | PCM.SN.2 ---
- Free Text/Narrative Note: Patient is doing fine. She does reports that she passed a little flatus but has some nausea this afternoon. No emesis. She ambulated 6 times today She only took dilaudid 1 time this afternoon. Plan - we will start her on CLD tonight. She can take as tolerated.
[2021-09-11] MEDS ORDERED: Metoprolol Tartrate 5 MG/5 ML SDV IVPUSH STA ×2 (23:02→23:27)
[2021-09-11] MEDS ORDERED: Metoprolol Tartrate 5 MG/5 ML SDV ONE (23:16)
[2021-09-11] MEDS ORDERED: Metoprolol Tartrate 5 MG in Sodium Chloride 0.9% 50 ML IV ONE ×2 (23:23→23:25)
[2021-09-11] MEDS ORDERED: Metoprolol Tartrate 5 MG/5 ML SDV IV ONE (23:30)
[2021-09-12] MEDS ORDERED: Metoprolol Tartrate 5 MG/5 ML SDV IVPUSH STA (00:12)
--- NOTE | 2021-09-12 00:21 | PCM.SN.2 ---
- Free Text/Narrative Note: Patient developed acute Afib with RVR this evening. I was notified. I came and saw the patient. she is comfortable, she does not feel any differently. Abdomen is soft, NT, ND EKG obtained. shows Afib with RVR to 160s. BP remained normal and RR was normal, saturating in the 90s with 1L NC. Plan - Will try rate control with Metoprolol 5mg x 3 if this does not work, we will try Dilt 10mg - [id number] score for this patient is 1 therefore anticoagulation not necessary at this point. - Will continue to monitor
[2021-09-12] MEDS ORDERED: Diltiazem 50 MG/10 ML SDV ONE (00:30)
[2021-09-12] MEDS ORDERED: Diltiazem 100 MG in Sodium Chloride 0.9% 100 ML IV SCH (01:45)
--- NOTE | 2021-09-12 07:26 | PCM.PN ---
- General Info Date of Service: 09/12/21 Admission Dx/Problem (Free Text): Bowel resection Subjective Update: Patient feels ok today, she is back to NSR right now after Afib with RVR overnight Functional Status: Reports: Pain Controlled, Tolerating Diet (sips of cld), Ambulating, Urinating - Review of Systems General: Reports: No Symptoms HEENT: Reports: No Symptoms Pulmonary: Reports: No Symptoms Cardiovascular: Reports: No Symptoms Gastrointestinal: Reports: Abdominal Pain (around the incisions) Genitourinary: Reports: No Symptoms Musculoskeletal: Reports: No Symptoms Skin: Reports: No Symptoms - Patient Data Vitals - Most Recent: Last Vital Signs Temp 98.3 F 09/12/21 00:00 Pulse 140 H 09/12/21 00:10 Resp 20 09/11/21 20:00 BP 109/76 09/12/21 00:10 Pulse Ox 91 L 09/11/21 20:00 Weight - Most Recent: 83.189 kg I&O - Last 24 Hours: Intake & Output 09/11/21 09/12/21 09/12/21 22:59 06:59 14:59 Intake Total 1430 Output Total 700 Balance 730 Lab Results Last 24 Hours: Laboratory Results - last 24 hr 09/12/21 09/12/21 09/12/21 Range/Units 02:28 05:00 05:00 WBC 6.39 (3.98-10.04) K/mm3 RBC 2.77 L (3.98-5.22) M/mm3 Hgb 8.1 L (11.2-15.7) gm/dl Hct 26.2 L (34.1-44.9) % MCV 94.6 (79.4-94.8) fl MCH 29.2 (25.6-32.2) pg MCHC 30.9 L (32.2-35.5) g/dl RDW Std Deviation 47.7 H (36.4-46.3) fL Plt Count 268 (182-369) K/mm3 MPV 9.7 (9.4-12.3) fl Neut % (Auto) 69.2 (34.0-71.1) % Lymph % (Auto) 21.1 (19.3-51.7) % [place] % (Auto) 8.1 (4.7-12.5) % Eos % (Auto) 1.1 (0.7-5.8) Baso % (Auto) 0.2 (0.1-1.2) % Neut # (Auto) 4.42 (1.56-6.13) K/mm3 Lymph # (Auto) 1.35 (1.18-3.74) K/mm3 [place] # (Auto) 0.52 H (0.24-0.36) K/mm3 Eos # (Auto) 0.07 (0.04-0.36) K/mm3 Baso # (Auto) 0.01 (0.01-0.08) K/mm3 Sodium 141 (136-145) mEq/L Potassium 3.8 3.8 (3.5-5.1) mEq/L Chloride 104 (98-107) mEq/L Carbon Dioxide 30 (21-32) mEq/L Anion Gap 10.8 (5-15) BUN 3 L (7-18) mg/dL Creatinine 0.6 (0.55-1.02) mg/dL Est Cr Clr Drug Dosing 80.42 mL/min Estimated GFR (MDRD) > 60 (>60) mL/min BUN/Creatinine Ratio 5.0 L (14-18) Glucose 174 H (70-99) mg/dL Calcium 7.9 L (8.5-10.1) mg/dL Phosphorus 2.6 (2.6-4.7) mg/dL Magnesium 2.2 2.2 (1.8-2.4) mg/dL Med Orders - Current: Current Medications Enoxaparin Sodium (Enoxaparin 40 Mg/0.4 Ml Syringe) 40 mg SUBCUT DAILY [facility] Last Admin: 09/11/21 09:48 Dose: 40 mg Documented by: Hydromorphone HCl (Hydromorphone 1 Mg/Ml Syringe) 1 mg IVPUSH Q3H PRN PRN Reason: Pain (severe 7-10) Last Admin: 09/11/21 23:32 Dose: 1 mg Documented by: Potassium Chloride/Dextrose/Sod Cl (D5 1/2 Ns W/ 20 Meq/L Kcl) 1,000 mls @ 75 mls/hr IV ASDIRECTED [facility] Last Admin: 09/11/21 22:14 Dose: 75 mls/hr Documented by: Diltiazem HCl 100 mg/ Sodium (Chloride) 100 mls @ 5 mls/hr IV ASDIRECTED [facility] Last Admin: 09/12/21 02:00 Dose: 5 mls/hr Documented by: Ondansetron HCl (Ondansetron 4 Mg/2 Ml Sdv) 4 mg IVPUSH Q6H PRN PRN Reason: Nausea/Vomiting Last Admin: 09/11/21 12:30 Dose: 4 mg Documented by: Pantoprazole Sodium (Pantoprazole 40 Mg Tab.Cr) 40 mg PO DAILY@0600 [facility] Last Admin: 09/11/21 06:39 Dose: 40 mg Documented by: Discontinued Medications Bupivacaine HCl (Bupivacaine 0.5% 30 Ml Sdv) Confirm Administered Dose 30 ml .ROUTE .STK-MED ONE Stop: 09/09/21 08:19 Last Admin: 09/09/21 18:50 Dose: 22 ml Documented by: Cefazolin Sodium (Cefazolin 1 Gm Vial) Confirm Administered Dose 3 gm .ROUTE .STK-MED ONE Stop: 09/09/21 07:59 Cefazolin Sodium (Cefazolin 1 Gm Vial) Confirm Administered Dose 1 gm .ROUTE .STK-MED ONE Stop: 09/09/21 12:24 Cefazolin Sodium (Cefazolin 1 Gm Vial) Confirm Administered Dose 2 gm .ROUTE .STK-MED ONE Stop: 09/09/21 16:27 Dexamethasone (Dexamethasone 4 Mg/Ml 5 Ml Mdv) Confirm Administered Dose 20 mg .ROUTE .STK-MED ONE Stop: 09/09/21 10:18 Dexmedetomidine HCl (Dexmedetomidine 200 Mcg/2 Ml Sdv) Confirm Administered Dose 200 mcg .ROUTE .STK-MED ONE Stop: 09/09/21 07:29 Diltiazem HCl (Diltiazem 50 Mg/10 Ml Sdv) Confirm Administered Dose 50 mg .ROUTE .STK-MED ONE Stop: 09/12/21 00:31 Last Admin: 09/12/21 00:41 Dose: 10 mg Documented by: Ephedrine Sulfate (Ephedrine 50 Mg/Ml Sdv) Confirm Administered Dose 50 mg .ROUTE .STK-MED ONE Stop: 09/09/21 08:50 Fentanyl (Fentanyl 250 Mcg/5 Ml Sdv) Confirm Administered Dose 250 mcg .ROUTE .STK-MED ONE Stop: 09/09/21 07:18 Fentanyl (Fentanyl 100 Mcg/2 Ml Sdv) 50 mcg IVPUSH Q5M PRN PRN Reason: Pain Stop: 09/09/21 12:00 Fentanyl (Fentanyl 100 Mcg/2 Ml Sdv) Confirm Administered Dose 100 mcg .ROUTE .STK-MED ONE Stop: 09/09/21 18:09 Glycopyrrolate (Glycopyrrolate 0.2 Mg/Ml 2 Ml Syringe) Confirm Administered Dose 0.8 mg .ROUTE .STK-MED ONE Stop: 09/09/21 09:15 Hydromorphone HCl (Hydromorphone 0.5 Mg/0.5 Ml Syringe) Confirm Administered Dose 0.5 mg .ROUTE .STK-MED ONE Stop: 09/09/21 07:18 Hydromorphone HCl (Hydromorphone 0.5 Mg/0.5 Ml Syringe) 0.5 mg IVPUSH Q10M PRN PRN Reason: Pain (severe 7-10) Stop: 09/09/21 12:00 Hydromorphone HCl (Hydromorphone 0.5 Mg/0.5 Ml Syringe) Confirm Administered Dose 0.5 mg .ROUTE .STK-MED ONE Stop: 09/09/21 13:33 Hydromorphone HCl (Hydromorphone 0.5 Mg/0.5 Ml Syringe) Confirm Administered Dose 0.5 mg .ROUTE .STK-MED ONE Stop: 09/09/21 18:09 Lactated Ringer's (Ringers, Lactated) Confirm Administered Dose 1,000 mls @ as directed .ROUTE .STK-MED ONE Stop: 09/09/21 07:18 Lidocaine HCl (Xylocaine-Mpf 1%) Confirm Administered Dose 4 mls @ as directed .ROUTE .STK-MED ONE Stop: 09/09/21 07:18 Lactated Ringer's (Ringers, Lactated) Confirm Administered Dose 1,000 mls @ as directed .ROUTE .STK-MED ONE Stop: 09/09/21 16:11 Lactated Ringer's (Ringers, Lactated) Confirm Administered Dose 1,000 mls @ as directed .ROUTE .STK-MED ONE Stop: 09/09/21 16:11 Lactated Ringer's (Ringers, Lactated) Confirm Administered Dose 1,000 mls @ as directed .ROUTE .STK-MED ONE Stop: 09/09/21 16:11 Lactated Ringer's (Ringers, Lactated) Confirm Administered Dose 1,000 mls @ as directed .ROUTE .[facility] ONE Stop: 09/09/21 16:11 Lactated Ringer's (Ringers, Lactated) Confirm Administered Dose 1,000 mls @ as directed .ROUTE .[facility] ONE Stop: 09/09/21 16:11 Sodium Chloride (Normal Saline) Confirm Administered Dose 1,000 mls @ as directed .ROUTE .[facility] ONE Stop: 09/09/21 16:11 Sodium Chloride (Normal Saline) Confirm Administered Dose 1,000 mls @ as di rected .ROUTE .[facility] ONE Stop: 09/09/21 17:43 Lactated Ringer's (Ringers, Lactated) 1,000 mls @ 125 mls/hr IV ASDIRECTED [place] Lactated Ringer's (Ringers, Lactated) 1,000 mls @ 150 mls/hr IV ASDIRECTED [facility] Lactated Ringer's (Ringers, Lactated) 1,000 mls @ 150 mls/hr IV ASDIRECTED [facility] Last Infusion: 09/10/21 07:00 Dose: 100 mls/hr Documented by: Lactated Ringer's (Ringers, Lactated) 1,000 mls @ 100 mls/hr IV ASDIRECTED [facility] Last Admin: 09/10/21 13:51 Dose: 100 mls/hr Documented by: Magnesium Sulfate 2 gm/ Premix 50 mls @ 25 mls/hr IV ONETIME ONE Stop: 09/10/21 09:59 Last Admin: 09/10/21 09:06 Dose: 25 mls/hr Documented by: Magnesium Sulfate/Dextrose 1 (gm/ Premix) 100 mls @ 100 mls/hr IV ONETIME ONE Stop: 09/10/21 10:59 Last Admin: 09/10/21 11:10 Dose: 100 mls/hr Documented by: Potassium Phosphate 30 mmole/ (Sodium Chloride) 510 mls @ 102 mls/hr IV ASDIRECTED [place] Stop: 09/11/21 12:59 Last Admin: 09/11/21 08:05 Dose: 102 mls/hr Documented by: Lactated Ringer's (Ringers, Lactated) 1,000 mls @ 125 mls/hr IV ASDIRECTED [facility] Stop: 08/26/21 23:00 Lactated Ringer's (Ringers, Lactated) 1,000 mls @ 125 mls/hr IV ASDIRECTED [place] Stop: 09/09/21 23:00 Last Admin: 09/09/21 07:55 Dose: 125 mls/hr Documented by: Ketamine HCl (Ketamine 500 Mg/10 Ml Mdv) Confirm Administered Dose 500 mg .ROUTE .STK-MED ONE Stop: 09/09/21 09:26 Ketorolac Tromethamine (Ketorolac 30 Mg/Ml Sdv) Confirm Administered Dose 30 mg .ROUTE .STK-MED ONE Stop: 09/09/21 11:26 Lidocaine/Sodium Bicarbonate (Lidocaine 1%/Sod Bicarbonate In Ns 8.4% 1 Ml Syringe) 0.25 ml IDERM ONETIME PRN PRN Reason: Prior to IV Start Stop: 08/26/21 18:00 Lidocaine/Sodium Bicarbonate (Lidocaine 1%/Sod Bicarbonate In Ns 8.4% 1 Ml Syringe) 0.25 ml IDERM ONETIME PRN PRN Reason: Prior to IV Start Stop: 09/09/21 18:00 Metoprolol Tartrate (Metoprolol Tartrate 5 Mg/5 Ml Sdv) 5 mg IVPUSH ONETIME STA Stop: 09/11/21 23:03 Last Admin: 09/11/21 23:12 Dose: 5 mg Documented by: Metoprolol Tartrate (Metoprolol Tartrate 5 Mg/5 Ml Sdv) Confirm Administered Dose 5 mg .ROUTE .STK-MED ONE Stop: 09/11/21 23:17 Last Admin: 09/11/21 23:29 Dose: 5 mg Documented by: Metoprolol Tartrate (Metoprolol Tartrate 5 Mg/5 Ml Sdv) 5 mg IV ONETIME ONE Stop: 09/11/21 23:31 Last Admin: 09/12/21 00:10 Dose: 5 mg Documented by: Metoprolol Tartrate (Metoprolol Tartrate 5 Mg/5 Ml Sdv) 5 mg IVPUSH ONETIME STA Stop: 09/11/21 23:28 Metoprolol Tartrate (Metoprolol Tartrate 5 Mg/5 Ml Sdv) 5 mg IVPUSH ONETIME STA Stop: 09/12/21 00:13 Midazolam HCl (Midazolam 1 Mg/Ml 2 Ml Sdv) Confirm Administered Dose 2 mg .ROUTE .ST-MED ONE Stop: 09/09/21 07:18 Miscellaneous Medication (Phenylephrine Hcl In 0.9% Nacl 1 Mg/10 Ml Syringe) Confirm Administered Dose 1 mg .ROUTE .ST-MED ONE Stop: 09/09/21 08:52 Miscellaneous Medication (Phenylephrine Hcl In 0.9% Nacl 1 Mg/10 Ml Syringe) Confirm Administered Dose 1 mg .ROUTE .ST-MED ONE Stop: 09/09/21 14:03 Miscellaneous Medication (Phenylephrine Hcl In 0.9% Nacl 1 Mg/10 Ml Syringe) Confirm Administered Dose 1 mg .ROUTE .[employer]-MED ONE Stop: 09/09/21 15:11 Miscellaneous Medication (Phenylephrine Hcl In 0.9% Nacl 1 Mg/10 Ml Syringe) Confirm Administered Dose 1 mg .ROUTE .[employer]-MED ONE Stop: 09/09/21 16:11 Miscellaneous Medication (Phenylephrine Hcl In 0.9% Nacl 1 Mg/10 Ml Syringe) Confirm Administered Dose 2 mg .ROUTE .ST-MED ONE Stop: 09/09/21 16:39 Miscellaneous Medication (Phenylephrine Hcl In 0.9% Nacl 1 Mg/10 Ml Syringe) Confirm Administered Dose 2 mg .ROUTE .[employer]-MED ONE Stop: 09/09/21 17:36 Neostigmine Methylsulfate (Neostigmine Methylsulfate 5 Mg/5 Ml Syringe) Confirm Administered Dose 5 mg .ROUTE .[employer]-MED ONE Stop: 09/09/21 10:55 Ondansetron HCl (Ondansetron 4 Mg/2 Ml Sdv) Confirm Administered Dose 4 mg .ROUTE .ST-MED ONE Stop: 09/09/21 07:18 Ondansetron HCl (Ondansetron 4 Mg/2 Ml Sdv) 4 mg IVPUSH ONETIME PRN PRN Reason: Nausea/Vomiting Stop: 09/09/21 12:00 Propofol (Propofol 200 Mg/20 Ml Sdv) Confirm Administered Dose 200 mg .ROUTE .STK-MED ONE Stop: 09/09/21 07:18 Rocuronium [place] (Rocuronium 50 Mg/5 Ml Vial) Confirm Administered Dose 50 mg .ROUTE .[employer]-MED ONE Stop: 09/09/21 07:18 Rocuronium [place] (Rocuronium 50 Mg/5 Ml Vial) Confirm Administered Dose 50 mg .ROUTE .STK-MED ONE Stop: 09/09/21 10:20 Rocuronium [place] (Rocuronium 50 Mg/5 Ml Vial) Confirm Administered Dose 50 mg .ROUTE .STK-MED ONE Stop: 09/09/21 13:35 Rocuronium [place] (Rocuronium 50 Mg/5 Ml Vial) Confirm Administered Dose 50 mg .ROUTE .STK-MED ONE Stop: 09/09/21 16:40 Sodium Chloride (Sodium Chloride 0.9% 10 Ml Syringe) 10 ml FLUSH ASDIRECTED PRN PRN Reason: Keep Vein Open Stop: 08/26/21 18:00 Sodium Chloride (Sodium Chloride 0.9% 10 Ml Syringe) 10 ml FLUSH 0900,2100 [place] Stop: 09/09/21 18:00 - Exam Quality Assessment: Supplemental Oxygen General: Alert, Oriented, Cooperative Lungs: Clear to Auscultation, Normal Respiratory Effort Cardiovascular: Regular Rate, Regular Rhythm GI/Abdominal Exam: Soft, Distended (moderately), Tender (around the incisions) - Patient Data Lab Results Last 24 hrs: Laboratory Results - last 24 hr 09/12/21 09/12/21 09/12/21 Range/Units 02:28 05:00 05:00 WBC 6.39 (3.98-10.04) K/mm3 RBC 2.77 L (3.98-5.22) M/mm3 Hgb 8.1 L (11.2-15.7) gm/dl Hct 26.2 L (34.1-44.9) % MCV 94.6 (79.4-94.8) fl MCH 29.2 (25.6-32.2) pg MCHC 30.9 L (32.2-35.5) g/dl RDW Std Deviation 47.7 H (36.4-46.3) fL Plt Count 268 (182-369) K/mm3 MPV 9.7 (9.4-12.3) fl Neut % (Auto) 69.2 (34.0-71.1) % Lymph % (Auto) 21.1 (19.3-51.7) % [place] % (Auto) 8.1 (4.7-12.5) % Eos % (Auto) 1.1 (0.7-5.8) Baso % (Auto) 0.2 (0.1-1.2) % Neut # (Auto) 4.42 (1.56-6.13) K/mm3 Lymph # (Auto) 1.35 (1.18-3.74) K/mm3 [place] # (Auto) 0.52 H (0.24-0.36) K/mm3 Eos # (Auto) 0.07 (0.04-0.36) K/mm3 Baso # (Auto) 0.01 (0.01-0.08) K/mm3 Sodium 141 (136-145) mEq/L Potassium 3.8 3.8 (3.5-5.1) mEq/L Chloride 104 (98-107) mEq/L Carbon Dioxide 30 (21-32) mEq/L Anion Gap 10.8 (5-15) BUN 3 L (7-18) mg/dL Creatinine 0.6 (0.55-1.02) mg/dL Est Cr Clr Drug Dosing 80.42 mL/min Estimated GFR (MDRD) > 60 (>60) mL/min BUN/Creatinine Ratio 5.0 L (14-18) Glucose 174 H (70-99) mg/dL Calcium 7.9 L (8.5-10.1) mg/dL Phosphorus 2.6 (2.6-4.7) mg/dL Magnesium 2.2 2.2 (1.8-2.4) mg/dL Result Diagrams: 09/12/21 05:00 09/12/21 05:00 Sepsis Event Note - Evaluation Sepsis Screening Result: No Definite Risk - Focused Exam Vital Signs: Vital Signs Temp Pulse Resp BP BP Pulse Ox 09/12/21 00:10 140 H 109/76 09/12/21 00:00 98.3 F 131/67 09/11/21 23:29 144 H 100/71 09/11/21 23:12 170 H 126/83 09/11/21 20:00 98.5 F 20 132/78 91 L - Problem List Review Problem List Initiated/Reviewed/Updated: No - My Orders Last 24 Hours: My Active Orders 09/11/21 07:45 D5 1/2 NS w/ 20 mEq/L KCl 1,000 ml IV ASDIRECTED 09/11/21 Dinner Clear Liquid Diet [DIET] 09/11/21 22:58 EKG 12 Lead [EK] Stat 09/11/21 23:39 Patient Status [ADT] Routine 09/12/21 01:45 Diltiazem [Cardizem] 100 mg Sodium Chloride 0.9% [Normal Saline AdvBag] 100 ml IV ASDIRECTED 09/13/21 05:11 BASIC METABOLIC PANEL,BMP [CHEM] AM CBC WITH AUTO DIFF [HEME] AM MAGNESIUM [CHEM] AM PHOSPHORUS [CHEM] AM 09/14/21 05:11 BASIC METABOLIC PANEL,BMP [CHEM] AM CBC WITH AUTO DIFF [HEME] AM MAGNESIUM [CHEM] AM PHOSPHORUS [CHEM] AM - Assessment Assessment:: 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 Had Afib with RVR overnight. She did not respond to metoprolol but responded to Diltiazem. Dilt infusion was initiated. she converted to NSR after a few hrs. She is stable. - Plan Plan:: Afib - continue Dilt infusion at 5 for today as long as she is tolerating it - continue CLD today - continue IVF at 75 - Electrolytes are normal, WBC is normal, HGB has stabilized - Ambulate at least 4 times today - Keep in ICU status today
[2021-09-12] MEDS: Enoxaparin 40 MG/0.4 ML Syringe SUBCUT SCH ×2 (07:45→12:08)
[2021-09-12] MEDS: Pantoprazole 40 MG Tab.CR PO SCH (07:45)
[2021-09-12] MEDS: D5 1/2 NS w/ 20 mEq/L KCl 1,000 ML IV SCH (12:09)
[2021-09-12] MEDS ORDERED: Ondansetron 4 MG Tab.DIS PO PRN (18:01)
[2021-09-12] MEDS ORDERED: oxyCODONE 5 MG Tab PO PRN (18:01)
[2021-09-12] MEDS ORDERED: Acetaminophen 325 MG Tab PO PRN (18:01)
[2021-09-12] MEDS: Polyethylene Glycol 3350 Powder 17 GM Packet PO SCH (18:12)
[2021-09-12] MEDS: Diltiazem IR 30 MG Tab PO SCH (18:14)
[2021-09-12] MEDS ORDERED: Aspirin 81 MG Tab.Chew PO SCH (21:00)
[2021-09-13] MEDS: Diltiazem IR 30 MG Tab PO SCH ×2 (00:21→07:26)
[2021-09-13] MEDS: Enoxaparin 40 MG/0.4 ML Syringe SUBCUT SCH (09:03)
[2021-09-13] MEDS: Polyethylene Glycol 3350 Powder 17 GM Packet PO SCH (09:04)
--- NOTE | 2021-09-13 10:36 | PCM.PN ---
- General Info Date of Service: 09/13/21 Admission Dx/Problem (Free Text): Bowel resection Subjective Update: Patient is feeling well. She has been walking around. Tolerated diet. No nausea or vomiting. She has been passing flatus Functional Status: Reports: Pain Controlled, Tolerating Diet, Ambulating, Urinating - Review of Systems General: Reports: No Symptoms HEENT: Reports: No Symptoms Pulmonary: Reports: No Symptoms Cardiovascular: Reports: No Symptoms Gastrointestinal: Reports: Abdominal Pain (around the incisions) Genitourinary: Reports: No Symptoms Musculoskeletal: Reports: No Symptoms Skin: Reports: No Symptoms Neurological: Reports: No Symptoms Psychiatric: Reports: No Symptoms - Patient Data Vitals - Most Recent: Last Vital Signs Temp 98.7 F 09/13/21 07:59 Pulse 72 09/13/21 07:59 Resp 18 09/13/21 07:59 BP 149/79 H 09/13/21 07:59 Pulse Ox 95 09/13/21 07:59 Weight - Most Recent: 80.343 kg I&O - Last 24 Hours: Intake & Output 09/12/21 09/13/21 09/13/21 22:59 06:59 14:59 Intake Total 1380 50 Output Total 1100 400 Balance 280 -350 Med Orders - Current: Current Medications Acetaminophen (Acetaminophen 325 Mg Tab) 650 mg PO Q6H PRN PRN Reason: Pain (moderate 4-6) Aspirin (Aspirin 81 Mg Tab.Chew) 81 mg PO BEDTIME [facility] Last Admin: 09/12/21 20:18 Dose: 81 mg Documented by: Diltiazem HCl (Diltiazem Ir 30 Mg Tab) 30 mg PO Q6HR [facility] Last Admin: 09/13/21 07:26 Dose: 30 mg Documented by: Enoxaparin Sodium (Enoxaparin 40 Mg/0.4 Ml Syringe) 40 mg SUBCUT DAILY [facility] Last Admin: 09/13/21 09:03 Dose: 40 mg Documented by: Diltiazem HCl 100 mg/ Sodium (Chloride) 100 mls @ 5 mls/hr IV ASDIRECTED [facility] Last Admin: 09/12/21 02:00 Dose: 5 mls/hr Documented by: Ondansetron HCl (Ondansetron 4 Mg Tab.Dis) 4 mg PO Q4H PRN PRN Reason: Nausea/Vomiting Oxycodone HCl (Oxycodone 5 Mg Tab) 5 mg PO Q6H PRN PRN Reason: Pain (severe 7-10) Polyethylene Glycol (Polyethylene Glycol 3350 Powder 17 Gm Packet) 17 gm PO DAILY [place] Last Admin: 09/13/21 09:04 Dose: Not Given Documented by: Discontinued Medications Bupivacaine HCl (Bupivacaine 0.5% 30 Ml Sdv) Confirm Administered Dose 30 ml .ROUTE .STK-MED ONE Stop: 09/09/21 08:19 Last Admin: 09/09/21 18:50 Dose: 22 ml Documented by: Cefazolin Sodium (Cefazolin 1 Gm Vial) Confirm Administered Dose 3 gm .ROUTE .STK-MED ONE Stop: 09/09/21 07:59 Cefazolin Sodium (Cefazolin 1 Gm Vial) Confirm Administered Dose 1 gm .ROUTE .STK-MED ONE Stop: 09/09/21 12:24 Cefazolin Sodium (Cefazolin 1 Gm Vial) Confirm Administered Dose 2 gm .ROUTE .STK-MED ONE Stop: 09/09/21 16:27 Dexamethasone (Dexamethasone 4 Mg/Ml 5 Ml Mdv) Confirm Administered Dose 20 mg .ROUTE .STK-MED ONE Stop: 09/09/21 10:18 Dexmedetomidine HCl (Dexmedetomidine 200 Mcg/2 Ml Sdv) Confirm Administered Dose 200 mcg .ROUTE .STK-MED ONE Stop: 09/09/21 07:29 Diltiazem HCl (Diltiazem 50 Mg/10 Ml Sdv) Confirm Administered Dose 50 mg .ROUTE .STK-MED ONE Stop: 09/12/21 00:31 Last Admin: 09/12/21 00:41 Dose: 10 mg Documented by: Ephedrine Sulfate (Ephedrine 50 Mg/Ml Sdv) Confirm Administered Dose 50 mg .ROUTE .STK-MED ONE Stop: 09/09/21 08:50 Fentanyl (Fentanyl 250 Mcg/5 Ml Sdv) Confirm Administered Dose 250 mcg .ROUTE .STK-MED ONE Stop: 09/09/21 07:18 Fentanyl (Fentanyl 100 Mcg/2 Ml Sdv) 50 mcg IVPUSH Q5M PRN PRN Reason: Pain Stop: 09/09/21 12:00 Fentanyl (Fentanyl 100 Mcg/2 Ml Sdv) Confirm Administered Dose 100 mcg .ROUTE .STK-MED ONE Stop: 09/09/21 18:09 Glycopyrrolate (Glycopyrrolate 0.2 Mg/Ml 2 Ml Syringe) Confirm Administered Dose 0.8 mg .ROUTE .STK-MED ONE Stop: 09/09/21 09:15 Hydromorphone HCl (Hydromorphone 0.5 Mg/0.5 Ml Syringe) Confirm Administered Dose 0.5 mg .ROUTE .STK-MED ONE Stop: 09/09/21 07:18 Hydromorphone HCl (Hydromorphone 0.5 Mg/0.5 Ml Syringe) 0.5 mg IVPUSH Q10M PRN PRN Reason: Pain (severe 7-10) Stop: 09/09/21 12:00 Hydromorphone HCl (Hydromorphone 0.5 Mg/0.5 Ml Syringe) Confirm Administered Dose 0.5 mg .ROUTE .STK-MED ONE Stop: 09/09/21 13:33 Hydromorphone HCl (Hydromorphone 0.5 Mg/0.5 Ml Syringe) Confirm Administered Dose 0.5 mg .ROUTE .STK-MED ONE Stop: 09/09/21 18:09 Hydromorphone HCl (Hydromorphone 1 Mg/Ml Syringe) 1 mg IVPUSH Q3H PRN PRN Reason: Pain (severe 7-10) Last Admin: 09/11/21 23:32 Dose: 1 mg Documented by: Lactated Ringer's (Ringers, Lactated) Confirm Administered Dose 1,000 mls @ as directed .ROUTE .STK-MED ONE Stop: 09/09/21 07:18 Lidocaine HCl (Xylocaine-Mpf 1%) Confirm Administered Dose 4 mls @ as directed .ROUTE .STK-MED ONE Stop: 09/09/21 07:18 Lactated Ringer's (Ringers, Lactated) Confirm Administered Dose 1,000 mls @ as directed .ROUTE .STK-MED ONE Stop: 09/09/21 16:11 Lactated Ringer's (Ringers, Lactated) Confirm Administered Dose 1,000 mls @ as directed .ROUTE .STK-MED ONE Stop: 09/09/21 16:11 Lactated Ringer's (Ringers, Lactated) Confirm Administered Dose 1,000 mls @ as directed .ROUTE .STK-MED ONE Stop: 09/09/21 16:11 Lactated Ringer's (Ringers, Lactated) Confirm Administered Dose 1,000 mls @ as directed .ROUTE .[facility] ONE Stop: 09/09/21 16:11 Lactated Ringer's (Ringers, Lactated) Confirm Administered Dose 1,000 mls @ as directed .ROUTE .[facility] ONE Stop: 09/09/21 16:11 Sodium Chloride (Normal Saline) Confirm Administered Dose 1,000 mls @ as directed .ROUTE .[facility] ONE Stop: 09/09/21 16:11 Sodium Chloride (Normal Saline) Confirm Administered Dose 1,000 mls @ as di rected .ROUTE .[facility] ONE Stop: 09/09/21 17:43 Lactated Ringer's (Ringers, Lactated) 1,000 mls @ 125 mls/hr IV ASDIRECTED [place] Lactated Ringer's (Ringers, Lactated) 1,000 mls @ 150 mls/hr IV ASDIRECTED [place] Lactated Ringer's (Ringers, Lactated) 1,000 mls @ 150 mls/hr IV ASDIRECTED [place] Last Infusion: 09/10/21 07:00 Dose: 100 mls/hr Documented by: Lactated Ringer's (Ringers, Lactated) 1,000 mls @ 100 mls/hr IV ASDIRECTED [place] Last Admin: 09/10/21 13:51 Dose: 100 mls/hr Documented by: Magnesium Sulfate 2 gm/ Premix 50 mls @ 25 mls/hr IV ONETIME ONE Stop: 09/10/21 09:59 Last Admin: 09/10/21 09:06 Dose: 25 mls/hr Documented by: Magnesium Sulfate/Dextrose 1 (gm/ Premix) 100 mls @ 100 mls/hr IV ONETIME ONE Stop: 09/10/21 10:59 Last Admin: 09/10/21 11:10 Dose: 100 mls/hr Documented by: Potassium Chloride/Dextrose/Sod Cl (D5 1/2 Ns W/ 20 Meq/L Kcl) 1,000 mls @ 75 mls/hr IV ASDIRECTED [place] Last Admin: 09/12/21 12:09 Dose: 75 mls/hr Documented by: Potassium Phosphate 30 mmole/ (Sodium Chloride) 510 mls @ 102 mls/hr IV ASDIRECTED [place] Stop: 09/11/21 12:59 Last Admin: 09/11/21 08:05 Dose: 102 mls/hr Documented by: Lactated Ringer's (Ringers, Lactated) 1,000 mls @ 125 mls/hr IV ASDIRECTED [facility] Stop: 08/26/21 23:00 Lactated Ringer's (Ringers, Lactated) 1,000 mls @ 125 mls/hr IV ASDIRECTED [facility] Stop: 09/09/21 23:00 Last Admin: 09/09/21 07:55 Dose: 125 mls/hr Documented by: Ketamine HCl (Ketamine 500 Mg/10 Ml Mdv) Confirm Administered Dose 500 mg .ROUTE .STK-MED ONE Stop: 09/09/21 09:26 Ketorolac Tromethamine (Ketorolac 30 Mg/Ml Sdv) Confirm Administered Dose 30 mg .ROUTE .STK-MED ONE Stop: 09/09/21 11:26 Lidocaine/Sodium Bicarbonate (Lidocaine 1%/Sod Bicarbonate In Ns 8.4% 1 Ml Syringe) 0.25 ml IDERM ONETIME PRN PRN Reason: Prior to IV Start Stop: 08/26/21 18:00 Lidocaine/Sodium Bicarbonate (Lidocaine 1%/Sod Bicarbonate In Ns 8.4% 1 Ml Syrin ge) 0.25 ml IDERM ONETIME PRN PRN Reason: Prior to IV Start Stop: 09/09/21 18:00 Metoprolol Tartrate (Metoprolol Tartrate 5 Mg/5 Ml Sdv) 5 mg IVPUSH ONETIME STA Stop: 09/11/21 23:03 Last Admin: 09/11/21 23:12 Dose: 5 mg Documented by: Metoprolol Tartrate (Metoprolol Tartrate 5 Mg/5 Ml Sdv) Confirm Administered Dose 5 mg .ROUTE .STK-MED ONE Stop: 09/11/21 23:17 Last Admin: 09/11/21 23:29 Dose: 5 mg Documented by: Metoprolol Tartrate (Metoprolol Tartrate 5 Mg/5 Ml Sdv) 5 mg IV ONETIME ONE Stop: 09/11/21 23:31 Last Admin: 09/12/21 00:10 Dose: 5 mg Documented by: Metoprolol Tartrate (Metoprolol Tartrate 5 Mg/5 Ml Sdv) 5 mg IVPUSH ONETIME STA Stop: 09/11/21 23:28 Last Admin: 09/12/21 07:34 Dose: Not Given Documented by: Metoprolol Tartrate (Metoprolol Tartrate 5 Mg/5 Ml Sdv) 5 mg IVPUSH ONETIME STA Stop: 09/12/21 00:13 Last Admin: 09/12/21 07:34 Dose: Not Given Documented by: Midazolam HCl (Midazolam 1 Mg/Ml 2 Ml Sdv) Confirm Administered Dose 2 mg .ROUTE .STK-MED ONE Stop: 09/09/21 07:18 Miscellaneous Medication (Phenylephrine Hcl In 0.9% Nacl 1 Mg/10 Ml Syringe) Confirm Administered Dose 1 mg .ROUTE .STK-MED ONE Stop: 09/09/21 08:52 Miscellaneous Medication (Phenylephrine Hcl In 0.9% Nacl 1 Mg/10 Ml Syringe) Confirm Administered Dose 1 mg .ROUTE .STK-MED ONE Stop: 09/09/21 14:03 Miscellaneous Medication (Phenylephrine Hcl In 0.9% Nacl 1 Mg/10 Ml Syringe) Confirm Administered Dose 1 mg .ROUTE .STStypi-MED ONE Stop: 09/09/21 15:11 Miscellaneous Medication (Phenylephrine Hcl In 0.9% Nacl 1 Mg/10 Ml Syringe) Confirm Administered Dose 1 mg .ROUTE .STK-MED ONE Stop: 09/09/21 16:11 Miscellaneous Medication (Phenylephrine Hcl In 0.9% Nacl 1 Mg/10 Ml Syringe) Confirm Administered Dose 2 mg .ROUTE .STK-MED ONE Stop: 09/09/21 16:39 Miscellaneous Medication (Phenylephrine Hcl In 0.9% Nacl 1 Mg/10 Ml Syringe) Confirm Administered Dose 2 mg .ROUTE .STK-MED ONE Stop: 09/09/21 17:36 Neostigmine Methylsulfate (Neostigmine Methylsulfate 5 Mg/5 Ml Syringe) Confirm Administered Dose 5 mg .ROUTE .STK-MED ONE Stop: 09/09/21 10:55 Ondansetron HCl (Ondansetron 4 Mg/2 Ml Sdv) Confirm Administered Dose 4 mg .ROUTE .STK-MED ONE Stop: 09/09/21 07:18 Ondansetron HCl (Ondansetron 4 Mg/2 Ml Sdv) 4 mg IVPUSH ONETIME PRN PRN Reason: Nausea/Vomiting Stop: 09/09/21 12:00 Ondansetron HCl (Ondansetron 4 Mg/2 Ml Sdv) 4 mg IVPUSH Q6H PRN PRN Reason: Nausea/Vomiting Last Admin: 09/11/21 12:30 Dose: 4 mg Documented by: Pantoprazole Sodium (Pantoprazole 40 Mg Tab.Cr) 40 mg PO DAILY@0600 [facility] Last Admin: 09/12/21 07:45 Dose: 40 mg Documented by: Propofol (Propofol 200 Mg/20 Ml Sdv) Confirm Administered Dose 200 mg .ROUTE .STK-MED ONE Stop: 09/09/21 07:18 Rocuronium [place] (Rocuronium 50 Mg/5 Ml Vial) Confirm Administered Dose 50 mg .ROUTE .STK-MED ONE Stop: 09/09/21 07:18 Rocuronium [place] (Rocuronium 50 Mg/5 Ml Vial) Confirm Administered Dose 50 mg .ROUTE .STK-MED ONE Stop: 09/09/21 10:20 Rocuronium [place] (Rocuronium 50 Mg/5 Ml Vial) Confirm Administered Dose 50 mg .ROUTE .STK-MED ONE Stop: 09/09/21 13:35 Rocuronium [place] (Rocuronium 50 Mg/5 Ml Vial) Confirm Administered Dose 50 mg .ROUTE .STK-MED ONE Stop: 09/09/21 16:40 Sodium Chloride (Sodium Chloride 0.9% 10 Ml Syringe) 10 ml FLUSH ASDIRECTED PRN PRN Reason: Keep Vein Open Stop: 08/26/21 18:00 Sodium Chloride (Sodium Chloride 0.9% 10 Ml Syringe) 10 ml FLUSH 0900,2100 [facility] Stop: 09/09/21 18:00 - Exam Quality Assessment: DVT Prophylaxis General: Alert, Oriented, Cooperative Lungs: Normal Respiratory Effort Cardiovascular: Regular Rate, Regular Rhythm, No Murmurs GI/Abdominal Exam: Soft, No Distention, Tender (around the incisions) Wound/Incisions: Healing Well, Dressing Dry and Intact, No Drainage #1 Interpretation EKG Date: 09/13/21 Time: 10:26 Rhythm: NSR Rate (Beats/Min): 81 [place]: Normal P-Wave: Present QRS: Normal ST-T: Normal QT: Normal Comparison: Change From Previous EKG EKG Interpretation Comments: Afib has resolved for the past 24 hrs #2 Interpretation EKG Date: 09/11/21 Time: 22:58 Rhythm: A-Fib Rate (Beats/Min): 166 [place]: Normal P-Wave: Absent QRS: Normal ST-T: Depressed Comparison: Change From Previous EKG EKG Interpretation Comments: Afib with RVR - Patient Data Result Diagrams: 09/12/21 05:00 09/12/21 05:00 Sepsis Event Note - Evaluation Sepsis Screening Result: No Definite Risk - Focused Exam Vital Signs: Vital Signs Temp Pulse Resp BP Pulse Ox 09/13/21 07:59 98.7 F 72 18 149/79 H 95 09/13/21 04:00 18 137/76 94 L 09/13/21 00:00 97.8 F 85 18 137/74 95 - Problem List Review Problem List Initiated/Reviewed/Updated: No - My Orders Last 24 Hours: My Active Orders 09/12/21 18:01 Acetaminophen [TylenoL] 650 mg PO Q6H PRN Ondansetron [Zofran ODT] 4 mg PO Q4H PRN oxyCODONE 5 mg PO Q6H PRN 09/12/21 18:15 Diltiazem IR [Cardizem] 30 mg PO Q6HR 09/12/21 21:00 Aspirin 81 mg PO BEDTIME 09/13/21 Breakfast Regular Diet [DIET] 09/13/21 10:22 EKG 12 Lead [EK] Stat 09/13/21 10:23 EKG Documentation Completion [RC] ASDIRECTED - Assessment Assessment:: 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 Afib has resolved and she has NSR for the past 24 hrs. - Plan Plan:: Afib - resolved after 3 hrs of onset and has been NSR since that time. This is likely a post op event that has now passed. No need for medications at this time. No need for further treatment at this time. EKG documentation completed. Post Op: she is now ambulating, tolerating diet, on RA and urinating. She is passing flatus. She will be discharged to home today
--- NOTE | 2021-09-13 11:01 | PCM.DCSUM1 ---
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 This was resected along with a segmental resections or the rectosigmoid colon and ileum. Patient recovered in the hospital. He recovery was complicated by a brief episode of Afib with RVR which was controlled with Diltiazem. The patient converted to NSR within 4 hrs and remained in NSR. She tolerated regular diet, was ambulating, and feeling well. She was discharged to home in stable condition. Diagnosis: Stroke: No - Discharge Data Discharge Date: 09/13/21 Discharge Disposition: Home, Self-Care 01 Condition: Good - Referral to Home Health Primary Care Physician: Jesus Neff MD - Patient Instructions Diet: Heart Healthy Diet Activity: No Lifting Over 10 Pounds (for 6 weeks) Driving: Do Not Drive (while taking opioid pain medications) Showering/Bathing: May Shower Wound/Incision Care: Keep Operative Site/Wound Site Clean and Dry Notify Provider of: Fever, Increased Pain, Swelling and Redness, Drainage, Nausea and/or Vomiting Other/Special Instructions: - Continue to walk daily. - Use Tylenol or Ibuprofen for pain. if pain becomes severe, use the prescribed opioid pain medications. - When using opioid pain medications, take Miralax to avoid constipation. - Discharge Plan *PRESCRIPTION DRUG MONITORING PROGRAM REVIEWED*: Yes *COPY OF PRESCRIPTION DRUG MONITORING REPORT IN PATIENT AMADO: No Prescriptions/Med Rec: polyethylene glycoL 3350 [MiraLAX] 17 gm PO DAILY 10 Days #10 packet oxyCODONE 5 mg PO Q6H PRN 5 Days #20 tablet PRN Reason: Pain (Severe 7-10) Home Medications: Home Meds Acetaminophen [Tylenol] 650 mg PO Q6H PRN tablet 09/13/21 [Rx] oxyCODONE 5 mg PO Q6H PRN 5 Days #20 tablet 09/13/21 [Rx] polyethylene glycoL 3350 [MiraLAX] 17 gm PO DAILY 10 Days #10 packet 09/13/21 [Rx] Oxygen Therapy Mode: Room Air Referrals: Jesus Neff MD [Primary Care Provider] - (follow up as needed) Eric Yoder MD [Ordering Only Provider] - 09/18/21 10:30 am (This appt. was already scheduled, please follow up with appt.) Sheela Rincon MD [Physician] - (10 days after discharge) - Discharge Summary/Plan Comment DC Time >30 min.: Yes Total # of Minutes for Discharge Time: 38 - General Info Date of Service: 09/13/21 Admission Dx/Problem (Free Text: Bowel resection Subjective Update: Patient is feeling well. She has been walking around. Tolerated diet. No nausea or vomiting. She has been passing flatus Functional Status: Reports: Pain Controlled, Tolerating Diet, Ambulating, Urinating - Review of Systems General: Reports: No Symptoms HEENT: Reports: No Symptoms Pulmonary: Reports: No Symptoms Cardiovascular: Reports: No Symptoms Gastrointestinal: Reports: Abdominal Pain (around the incisions) Genitourinary: Reports: No Symptoms Musculoskeletal: Reports: No Symptoms Skin: Reports: No Symptoms Neurological: Reports: No Symptoms - Patient Data Vitals - Most Recent: Last Vital Signs Temp 98.7 F 09/13/21 07:59 Pulse 72 09/13/21 07:59 Resp 18 09/13/21 07:59 BP 149/79 H 09/13/21 07:59 Pulse Ox 95 09/13/21 07:59 Weight - Most Recent: 80.343 kg I&O - Last 24 hours: Intake & Output 09/12/21 09/13/21 09/13/21 22:59 06:59 14:59 Intake Total 1380 50 Output Total 1100 400 Balance 280 -350 Med Orders - Current: Current Medications Acetaminophen (Acetaminophen 325 Mg Tab) 650 mg PO Q6H PRN PRN Reason: Pain (moderate 4-6) Aspirin (Aspirin 81 Mg Tab.Chew) 81 mg PO BEDTIME [facility] Last Admin: 09/12/21 20:18 Dose: 81 mg Documented by: Diltiazem HCl (Diltiazem Ir 30 Mg Tab) 30 mg PO Q6HR [facility] Last Admin: 09/13/21 07:26 Dose: 30 mg Documented by: Enoxaparin Sodium (Enoxaparin 40 Mg/0.4 Ml Syringe) 40 mg SUBCUT DAILY [facility] Last Admin: 09/13/21 09:03 Dose: 40 mg Documented by: Diltiazem HCl 100 mg/ Sodium (Chloride) 100 mls @ 5 mls/hr IV ASDIRECTED [facility] Last Admin: 09/12/21 02:00 Dose: 5 mls/hr Documented by: Ondansetron HCl (Ondansetron 4 Mg Tab.Dis) 4 mg PO Q4H PRN PRN Reason: Nausea/Vomiting Oxycodone HCl (Oxycodone 5 Mg Tab) 5 mg PO Q6H PRN PRN Reason: Pain (severe 7-10) Polyethylene Glycol (Polyethylene Glycol 3350 Powder 17 Gm Packet) 17 gm PO DAILY [place] Last Admin: 09/13/21 09:04 Dose: Not Given Documented by: Discontinued Medications Bupivacaine HCl (Bupivacaine 0.5% 30 Ml Sdv) Confirm Administered Dose 30 ml .ROUTE .STK-MED ONE Stop: 09/09/21 08:19 Last Admin: 09/09/21 18:50 Dose: 22 ml Documented by: Cefazolin Sodium (Cefazolin 1 Gm Vial) Confirm Administered Dose 3 gm .ROUTE .STK-MED ONE Stop: 09/09/21 07:59 Cefazolin Sodium (Cefazolin 1 Gm Vial) Confirm Administered Dose 1 gm .ROUTE .STK-MED ONE Stop: 09/09/21 12:24 Cefazolin Sodium (Cefazolin 1 Gm Vial) Confirm Administered Dose 2 gm .ROUTE .STK-MED ONE Stop: 09/09/21 16:27 Dexamethasone (Dexamethasone 4 Mg/Ml 5 Ml Mdv) Confirm Administered Dose 20 mg .ROUTE .STK-MED ONE Stop: 09/09/21 10:18 Dexmedetomidine HCl (Dexmedetomidine 200 Mcg/2 Ml Sdv) Confirm Administered Dose 200 mcg .ROUTE .STK-MED ONE Stop: 09/09/21 07:29 Diltiazem HCl (Diltiazem 50 Mg/10 Ml Sdv) Confirm Administered Dose 50 mg .ROUTE .STK-MED ONE Stop: 09/12/21 00:31 Last Admin: 09/12/21 00:41 Dose: 10 mg Documented by: Ephedrine Sulfate (Ephedrine 50 Mg/Ml Sdv) Confirm Administered Dose 50 mg .ROUTE .STK-MED ONE Stop: 09/09/21 08:50 Fentanyl (Fentanyl 250 Mcg/5 Ml Sdv) Confirm Administered Dose 250 mcg .ROUTE .STK-MED ONE Stop: 09/09/21 07:18 Fentanyl (Fentanyl 100 Mcg/2 Ml Sdv) 50 mcg IVPUSH Q5M PRN PRN Reason: Pain Stop: 09/09/21 12:00 Fentanyl (Fentanyl 100 Mcg/2 Ml Sdv) Confirm Administered Dose 100 mcg .ROUTE .STK-MED ONE Stop: 09/09/21 18:09 Glycopyrrolate (Glycopyrrolate 0.2 Mg/Ml 2 Ml Syringe) Confirm Administered Dose 0.8 mg .ROUTE .STK-MED ONE Stop: 09/09/21 09:15 Hydromorphone HCl (Hydromorphone 0.5 Mg/0.5 Ml Syringe) Confirm Administered D ose 0.5 mg .ROUTE .STK-MED ONE Stop: 09/09/21 07:18 Hydromorphone HCl (Hydromorphone 0.5 Mg/0.5 Ml Syringe) 0.5 mg IVPUSH Q10M PRN PRN Reason: Pain (severe 7-10) Stop: 09/09/21 12:00 Hydromorphone HCl (Hydromorphone 0.5 Mg/0.5 Ml Syringe) Confirm Administered Dose 0.5 mg .ROUTE .STK-MED ONE Stop: 09/09/21 13:33 Hydromorphone HCl (Hydromorphone 0.5 Mg/0.5 Ml Syringe) Confirm Administered Dose 0.5 mg .ROUTE .STK-MED ONE Stop: 09/09/21 18:09 Hydromorphone HCl (Hydromorphone 1 Mg/Ml Syringe) 1 mg IVPUSH Q3H PRN PRN Reason: Pain (severe 7-10) Last Admin: 09/11/21 23:32 Dose: 1 mg Documented by: Lactated Ringer's (Ringers, Lactated) Confirm Administered Dose 1,000 mls @ as directed .ROUTE .STK-MED ONE Stop: 09/09/21 07:18 Lidocaine HCl (Xylocaine-Mpf 1%) Confirm Administered Dose 4 mls @ as directed .ROUTE .STK-MED ONE Stop: 09/09/21 07:18 Lactated Ringer's (Ringers, Lactated) Confirm Administered Dose 1,000 mls @ as directed .ROUTE .STK-MED ONE Stop: 09/09/21 16:11 Lactated Ringer's (Ringers, Lactated) Confirm Administered Dose 1,000 mls @ as directed .ROUTE .STK-MED ONE Stop: 09/09/21 16:11 Lactated Ringer's (Ringers, Lactated) Confirm Administered Dose 1,000 mls @ as d irected .ROUTE .[facility] ONE Stop: 09/09/21 16:11 Lactated Ringer's (Ringers, Lactated) Confirm Administered Dose 1,000 mls @ as directed .ROUTE .[facility] ONE Stop: 09/09/21 16:11 Lactated Ringer's (Ringers, Lactated) Confirm Administered Dose 1,000 mls @ as directed .ROUTE .[facility] ONE Stop: 09/09/21 16:11 Sodium Chloride (Normal Saline) Confirm Administered Dose 1,000 mls @ as directed .ROUTE .[facility] ONE Stop: 09/09/21 16:11 Sodium Chloride (Normal Saline) Confirm Administered Dose 1,000 mls @ as directed .ROUTE .[facility] ONE Stop: 09/09/21 17:43 Lactated Ringer's (Ringers, Lactated) 1,000 mls @ 125 mls/hr IV ASDIRECTED [place] Lactated Ringer's (Ringers, Lactated) 1,000 mls @ 150 mls/hr IV ASDIRECTED [place] Lactated Ringer's (Ringers, Lactated) 1,000 mls @ 150 mls/hr IV ASDIRECTED [place] Last Infusion: 09/10/21 07:00 Dose: 100 mls/hr Documented by: Lactated Ringer's (Ringers, Lactated) 1,000 mls @ 100 mls/hr IV ASDIRECTED [place] Last Admin: 09/10/21 13:51 Dose: 100 mls/hr Documented by: Magnesium Sulfate 2 gm/ Premix 50 mls @ 25 mls/hr IV ONETIME ONE Stop: 09/10/21 09:59 Last Admin: 09/10/21 09:06 Dose: 25 mls/hr Documented by: Magnesium Sulfate/Dextrose 1 (gm/ Premix) 100 mls @ 100 mls/hr IV ONETIME ONE Stop: 09/10/21 10:59 Last Admin: 09/10/21 11:10 Dose: 100 mls/hr Documented by: Potassium Chloride/Dextrose/Sod Cl (D5 1/2 Ns W/ 20 Meq/L Kcl) 1,000 mls @ 75 mls/hr IV ASDIRECTED [place] Last Admin: 09/12/21 12:09 Dose: 75 mls/hr Documented by: Potassium Phosphate 30 mmole/ (Sodium Chloride) 510 mls @ 102 mls/hr IV ASDIRECTED [place] Stop: 09/11/21 12:59 Last Admin: 09/11/21 08:05 Dose: 102 mls/hr Documented by: Lactated Ringer's (Ringers, Lactated) 1,000 mls @ 125 mls/hr IV ASDIRECTED [place] Stop: 08/26/21 23:00 Lactated Ringer's (Ringers, Lactated) 1,000 mls @ 125 mls/hr IV ASDIRECTED [place] Stop: 09/09/21 23:00 Last Admin: 09/09/21 07:55 Dose: 125 mls/hr Documented by: Ketamine HCl (Ketamine 500 Mg/10 Ml Mdv) Confirm Administered Dose 500 mg .ROUTE .STK-MED ONE Stop: 09/09/21 09:26 Ketorolac Tromethamine (Ketorolac 30 Mg/Ml Sdv) Confirm Administered Dose 30 mg .ROUTE .STK-MED ONE Stop: 09/09/21 11:26 Lidocaine/Sodium Bicarbonate (Lidocaine 1%/Sod Bicarbonate In Ns 8.4% 1 Ml Syringe) 0.25 ml IDERM ONETIME PRN PRN Reason: Prior to IV Start Stop: 08/26/21 18:00 Lidocaine/Sodium Bicarbonate (Lidocaine 1%/Sod Bicarbonate In Ns 8.4% 1 Ml Syringe) 0.25 ml IDERM ONETIME PRN PRN Reason: Prior to IV Start Stop: 09/09/21 18:00 Metoprolol Tartrate (Metoprolol Tartrate 5 Mg/5 Ml Sdv) 5 mg IVPUSH ONETIME STA Stop: 09/11/21 23:03 Last Admin: 09/11/21 23:12 Dose: 5 mg Documented by: Metoprolol Tartrate (Metoprolol Tartrate 5 Mg/5 Ml Sdv) Confirm Administered Dose 5 mg .ROUTE .STK-MED ONE Stop: 09/11/21 23:17 Last Admin: 09/11/21 23:29 Dose: 5 mg Documented by: Metoprolol Tartrate (Metoprolol Tartrate 5 Mg/5 Ml Sdv) 5 mg IV ONETIME ONE Stop: 09/11/21 23:31 Last Admin: 09/12/21 00:10 Dose: 5 mg Documented by: Metoprolol Tartrate (Metoprolol Tartrate 5 Mg/5 Ml Sdv) 5 mg IVPUSH ONETIME STA Stop: 09/11/21 23:28 Last Admin: 09/12/21 07:34 Dose: Not Given Documented by: Metoprolol Tartrate (Metoprolol Tartrate 5 Mg/5 Ml Sdv) 5 mg IVPUSH ONETIME STA Stop: 09/12/21 00:13 Last Admin: 09/12/21 07:34 Dose: Not Given Documented by: Midazolam HCl (Midazolam 1 Mg/Ml 2 Ml Sdv) Confirm Administered Dose 2 mg .ROUTE .STK-MED ONE Stop: 09/09/21 07:18 Miscellaneous Medication (Phenylephrine Hcl In 0.9% Nacl 1 Mg/10 Ml Syringe) Confirm Administered Dose 1 mg .ROUTE .STK-MED ONE Stop: 09/09/21 08:52 Miscellaneous Medication (Phenylephrine Hcl In 0.9% Nacl 1 Mg/10 Ml Syringe) Confirm Administered Dose 1 mg .ROUTE .STK-MED ONE Stop: 09/09/21 14:03 Miscellaneous Medication (Phenylephrine Hcl In 0.9% Nacl 1 Mg/10 Ml Syringe) Confirm Administered Dose 1 mg .ROUTE .STK-MED ONE Stop: 09/09/21 15:11 Miscellaneous Medication (Phenylephrine Hcl In 0.9% Nacl 1 Mg/10 Ml Syringe) Confirm Administered Dose 1 mg .ROUTE .STK-MED ONE Stop: 09/09/21 16:11 Miscellaneous Medication (Phenylephrine Hcl In 0.9% Nacl 1 Mg/10 Ml Syringe) Confirm Administered Dose 2 mg .ROUTE .STK-MED ONE Stop: 09/09/21 16:39 Miscellaneous Medication (Phenylephrine Hcl In 0.9% Nacl 1 Mg/10 Ml Syringe) Confirm Administered Dose 2 mg .ROUTE .STK-MED ONE Stop: 09/09/21 17:36 Neostigmine Methylsulfate (Neostigmine Methylsulfate 5 Mg/5 Ml Syringe) Confirm Administered Dose 5 mg .ROUTE .STK-MED ONE Stop: 09/09/21 10:55 Ondansetron HCl (Ondansetron 4 Mg/2 Ml Sdv) Confirm Administered Dose 4 mg .ROUTE .STK-MED ONE Stop: 09/09/21 07:18 Ondansetron HCl (Ondansetron 4 Mg/2 Ml Sdv) 4 mg IVPUSH ONETIME PRN PRN Reason: Nausea/Vomiting Stop: 09/09/21 12:00 Ondansetron HCl (Ondansetron 4 Mg/2 Ml Sdv) 4 mg IVPUSH Q6H PRN PRN Reason: Nausea/Vomiting Last Admin: 09/11/21 12:30 Dose: 4 mg Documented by: Pantoprazole Sodium (Pantoprazole 40 Mg Tab.Cr) 40 mg PO DAILY@0600 [facility] Last Admin: 09/12/21 07:45 Dose: 40 mg Documented by: Propofol (Propofol 200 Mg/20 Ml Sdv) Confirm Administered Dose 200 mg .ROUTE .STK-MED ONE Stop: 09/09/21 07:18 Rocuronium [place] (Rocuronium 50 Mg/5 Ml Vial) Confirm Administered Dose 50 mg .ROUTE .STK-MED ONE Stop: 09/09/21 07:18 Rocuronium [place] (Rocuronium 50 Mg/5 Ml Vial) Confirm Administered Dose 50 mg .ROUTE .STK-MED ONE Stop: 09/09/21 10:20 Rocuronium [place] (Rocuronium 50 Mg/5 Ml Vial) Confirm Administered Dose 50 mg .ROUTE .STK-MED ONE Stop: 09/09/21 13:35 Rocuronium [place] (Rocuronium 50 Mg/5 Ml Vial) Confirm Administered Dose 50 mg .ROUTE .STK-MED ONE Stop: 09/09/21 16:40 Sodium Chloride (Sodium Chloride 0.9% 10 Ml Syringe) 10 ml FLUSH ASDIRECTED PRN PRN Reason: Keep Vein Open Stop: 08/26/21 18:00 Sodium Chloride (Sodium Chloride 0.9% 10 Ml Syringe) 10 ml FLUSH 0900,2100 [facility] Stop: 09/09/21 18:00 - Exam Quality Assessment: Reports: DVT Prophylaxis General: Reports: Alert, Oriented, Cooperative Lungs: Reports: Normal Respiratory Effort Cardiovascular: Reports: Regular Rate, Regular Rhythm GI/Abdominal Exam: Soft, No Distention, Tender (around the incisions) Skin: Reports: Warm, Dry, Intact Wound/Incisions: Reports: Healing Well, No Drainage
[2021-09-13 11:35] VITALS: BP 139/79; PULSE 78
--- NOTE | 2021-09-20 15:19 | PCM.EKG ---
#1 Interpretation EKG Date: 09/11/21 Time: 22:58 Rhythm: A-Fib [place]: Normal P-Wave: Absent QRS: Normal ST-T: Depressed QT: Normal Comparison: NA - No Prior EKG (Afib with RVR)
--- NOTE | 2021-09-20 15:20 | PCM.EKG ---
#2 Interpretation EKG Date: 09/13/21 Time: 10:26 Rhythm: NSR [place]: Normal P-Wave: Present QRS: Normal ST-T: Normal QT: Normal Comparison: Change From Previous EKG (NSR)
== END 2021-09-13 11:37 | disposition home or self-care (01) | DRG 230 ==
LOC: JD.MS 09-09 07:41 → JD.ICU 09-09 18:31
PROVIDERS: ADMIT Surgery; ATTEND Surgery
PROC: 0DN84ZZ Release Small Intestine, Percutaneous Endoscopic Approach (ICD-10-PCS; principal; 2021-09-09)
PROC: 0D1A0ZA Bypass Jejunum to Jejunum, Open Approach (ICD-10-PCS; principal; 2021-09-09)
PROC: 0D1E0ZP Bypass Large Intestine to Rectum, Open Approach (ICD-10-PCS; principal; 2021-09-09)
PROC: 0DT80ZZ Resection of Small Intestine, Open Approach (ICD-10-PCS; principal; 2021-09-09)
PROC: 0DBN0ZZ Excision of Sigmoid Colon, Open Approach (ICD-10-PCS; principal; 2021-09-09)
PROC: 30233N1 Transfusion of Nonautologous Red Blood Cells into Peripheral Vein, Percutaneous Approach (ICD-10-PCS; 2021-09-09)
DX: C49.A3 Gastrointestinal stromal tumor of small intestine (principal); I48.91 Unspecified atrial fibrillation; Z79.01 Long term (current) use of anticoagulants; Z90.49 Acquired absence of other specified parts of digestive tract; Z98.890 Other specified postprocedural states; Z90.710 Acquired absence of both cervix and uterus; Z87.81 Personal history of (healed) traumatic fracture; Z90.89 Acquired absence of other organs; Z88.5 Allergy status to narcotic agent
CPT/HCPCS: 00790; 36415; 36430; 71045; 71045-26; 80048; 80053; 83735; 84100; 84132; 85025; 86850; 86900; 86901; 86922; 93005; A9270-GY; J0690; J1100; J1170; J1650; J1885; J2250; J2370; J2405; J2704; J2710; J3010; J3475; J3480; J3490; J7030; J7040; J7120; P9016